=== PATIENT | female | born 1960 | race African-American/Black ===

== ENCOUNTER 2017-03-13 13:25 | Emergency (ER) | payer MEDICARE, OTHER ==
[~2017-03-13] VITALS: Ht 157.5 cm; Wt 92.2 kg
--- NOTE | 2017-03-13 14:44 | PHYS DOC ---
General Chief Complaint: FOOT INJURY PAIN Stated Complaint: FOOT PAIN Time Seen by MD: 13:33 Source: patient Exam Limitations: no limitations Problems: History of Present Illness Initial Comments Pt is 56/F to ED c/o left foot pain. Pt states one week ago she accidentally stubbed her left hallux on bedpost at home. She's had severe pain at that MCP and IP joint since then, worse with walking better with rest. She thought it would get better, hasn't been splinting or icing it and she's been trying to walk around as normal. Recently moved here, no PCP. OTC meds not helping. No numbness/tingling/weakness/ radiating sx, no foot ulcers or erythema noted. Mild bruising at medial IP joint no swelling. Onset: last week Severity: severe Pain/Injury Location: left 1st toe Method of Injury: direct blow Modifying Factors: worse with jarring, worse with movement, improves with rest Allergies: Coded Allergies: diphenhydramine (Verified Allergy, Unknown, 03/13/17) morphine (Verified Allergy, Unknown, 03/13/17) prochlorperazine (Verified Allergy, Unknown, 03/13/17) sulfamethoxazole (Verified Allergy, Unknown, 03/13/17) trimethoprim (Verified Allergy, Unknown, 03/13/17) Past Medical History Medical History: diabetes, hypertension Surgical History: noncontributory Social History Smoker: non-smoker Alcohol: occasionally Drugs: none Review of Systems Constitutional: denies chills, denies fever Respiratory: denies cough, denies shortness of breath Cardiovascular: denies chest pain, denies palpitations Gastrointestinal: denies nausea, denies vomiting Genitourinary: denies frequency, denies hematuria Musculoskeletal: see HPI Skin: see HPI Psychiatric/Neurological: see HPI Physical Exam General Appearance: no apparent distress, obese Neck: non-tender, supple Cardiovascular/Respiratory: normal peripheral pulses, no respiratory distress Ankles: bilateral ankle non-tender, bilateral ankle normal inspection, bilateral ankle normal range of motion, bilateral ankle no evidence of injury Feet: left foot other (halgus varus b/l, mild TTP 1st MCP, exquisite TTP medial IP joint +bruising no deformity, ROM not tested due to pt discomfort) Neurologic/Tendon: normal sensation, normal motor functions, normal tendon functions, responds to pain, no evidence tendon injury Psychiatric: alert, oriented x 3 Skin: warm/dry (L hallux as above) Orders, Labs, Meds RAD: no fracture Departure Time of Disposition: 15:07 Disposition: 01 HOME, SELF-CARE Diagnosis: left hallux contusion/sprain Condition: GOOD Patient Instructions: Toe Injuries and Amputations Additional Instructions: Radiologist interpreted your films, no acute fracture or dislocation. Ice and elevate as tolerated, limit walking and standing. Wear post-op shoe as needed. OTC ibuprofen for baseline discomfort. Rx: norco 5mg #15 You will need to follow up with a primary care doctor for recheck and to establish health maintenance with your chronic medical issues. If needed, ED staff can give you a list of local doctors some of whom have walk- in appointments available. Follow up with a doctor in 7-10 days. Return to ED with new or changing symptoms. GINO BARGER DO Mar 13, 2017 14:44
[2017-03-13] MEDS ORDERED: HYDROcodone/APAP 5/325MG 1 TAB TABLET PO ONE (14:45)
[2017-03-13] MEDS ORDERED: HYDR-971 PO (15:05)
--- NOTE | 2017-03-13 15:05 | RAD ---
Examination: 3 views of the left foot History: History of pain the left foot Comparison: None available Findings: The alignment of the tarsal bones grossly appears unremarkable. The alignment of the tarsometatarsal joints, metatarsophalangeal joints grossly appears unremarkable. There is no acute fracture visualized. Small inferior calcaneal enthesophyte. Impression: No acute osseous findings
[2017-03-13 15:25] VITALS: BP 179/99
== END 2017-03-13 15:27 | disposition home or self-care (01) ==
LOC: ER 13:31
DX: M79.672 Pain in left foot (principal); E11.9 Type 2 diabetes mellitus without complications; I10 Essential (primary) hypertension; Z88.5 Allergy status to narcotic agent; Z88.1 Allergy status to other antibiotic agents; Z88.8 Allergy status to other drugs, medicaments and biological substances; W22.8XXA Striking against or struck by other objects, initial encounter; Y93.89 Activity, other specified; Y99.8 Other external cause status; Y92.89 Other specified places as the place of occurrence of the external cause
CPT/HCPCS: 29515; 73630; 99284-25

== ENCOUNTER 2017-04-19 13:27 | Emergency (ER) | payer MEDICARE ==
[~2017-04-19] VITALS: Ht 157.5 cm; Wt 92.5 kg
[~2017-04-19 13:27] MED LIST: HYDR-971 PO
[2017-04-19 13:45] VITALS: BP 168/99
[2017-04-19] MEDS ORDERED: HYDR25TA PO (13:53)
[2017-04-19] MEDS ORDERED: CLOT12CR2 TP (13:53)
--- NOTE | 2017-04-19 13:59 | ED.ADGEN ---
Past History Past Medical History: Diabetes, Hypertension Past Surgical History: , Hysterectomy, Other Alcohol Use: Rarely Drug Use: None Adult General Chief Complaint Chief Complaint right breast rash HPI HPI Patient is a 56 year old female who presents with right breast rash. Disposition female comes in with a few day history of itching right breast rash underneath her right breast. No trauma. No other symptoms. It's approximately 15 x 15 cm. It's on the underside of her breast. Left breast is not involved. There is no rash extending to her back. Review of Systems Review of Systems Constitutional: Denies fever or chills HENT: Denies nasal congestion or sore throat Respiratory: Denies cough or shortness of breath Cardiovascular: No additional information not addressed in HPI GI: Denies abdominal pain, nausea, vomiting, bloody stools or diarrhea [] : Denies dysuria or hematuria Musculoskeletal: Denies back pain or joint pain rash as per HPI Neurologic: Denies headache, focal weakness or sensory changes Endocrine: Denies polyuria or polydipsia Allergies Allergies Allergies Coded Allergies Type Severity Reaction Last Updated Verified diphenhydramine Allergy Unknown 03/13/17 Yes morphine Allergy Unknown 03/13/17 Yes prochlorperazine Allergy Unknown 03/13/17 Yes sulfamethoxazole Allergy Unknown 03/13/17 Yes trimethoprim Allergy Unknown 03/13/17 Yes Physical Exam Physical Exam Constitutional: Well developed, well nourished, no acute distress, non-toxic appearance. HENT: Normocephalic, atraumatic, bilateral external ears normal, oropharynx moist, no oral exudates, nose normal. Eyes: PERRLA, EOMI, conjunctiva normal, no discharge. Neck: Normal range of motion, no tenderness, supple, no stridor. Cardiovascular:Heart rate regular rhythm, no murmur Lungs & Thorax: Bilateral breath sounds clear to auscultation Abdomen: Bowel sounds normal, soft, no tenderness, no masses, no pulsatile masses. Skin: 1515 cm area of excoriation on the right breast. No extension to the back. Consistent with tinea or yeast. Back: No tenderness, no CVA tenderness. Extremities: No tenderness, no cyanosis, no clubbing, ROM intact, no edema. Neurologic: Alert and oriented X 3, normal motor function, normal sensory function, no focal deficits noted. Psychologic: Affect normal, judgement normal, mood normal. Current Patient Data Vital Signs Vital Signs Date Time Temp Pulse Resp B/P (MAP) Pulse Ox O2 Delivery O2 Flow Rate FiO2 04/19/17 13:45 99.3 66 18 95 Room Air EKG EKG [] Radiology/Procedures Radiology/Procedures [] Impressions: Right breast yeast infection Course & Med Decision Making Course & Med Decision Making Not consistent with shingles. We'll treat with antifungal's and hydroxyzine for itching. She states Benadryl gives her headache does not have a true allergy and she is willing to try hydroxyzine. Agrees to follow-up in the next couple days with a family practice doctor Final Impression Final Impression right breast yeast infection[] Problems: Dragon Disclaimer Dragon Disclaimer This electronic medical record was generated, in whole or in part, using a voice recognition dictation system. ROWENA DE OLIVEIRA MD Apr 19, 2017 13:59
== END 2017-04-19 14:14 | disposition home or self-care (01) ==
LOC: ER 13:27
DX: N61.0 Mastitis without abscess (principal); B37.89 Other sites of candidiasis; E11.9 Type 2 diabetes mellitus without complications; I10 Essential (primary) hypertension; Z88.5 Allergy status to narcotic agent; Z88.1 Allergy status to other antibiotic agents; Z88.8 Allergy status to other drugs, medicaments and biological substances
CPT/HCPCS: 99283

== ENCOUNTER 2017-05-04 11:46 | Emergency (ER) | payer MEDICARE ==
[~2017-05-04 11:46] MED LIST changes: +CLOT12CR2 TP; +HYDR25TA PO
--- NOTE | 2017-05-04 12:13 | PHYS DOC ---
General Chief Complaint: DENTAL PROBLEM Stated Complaint: DENTAL PAIN Time Seen by MD: 12:02 Source: patient Exam Limitations: no limitations Problems: History of Present Illness Initial Comments Patient is a 57-year-old female who comes to the emergency department initially complaining of dental pain. Patient states that she's had right upper dental pain and swelling of the gums for the past several days. She's been taking ibuprofen [id number] without any relief. She denies headache fever chills sweats arm or neck symptoms nausea or vomiting. Patient says she recently moved here and doesn't have a doctor locally and hasn't established with a dentist. In talking the patient states that she's been taking ibuprofen and thinks that ibuprofen has caused her to have some chest discomfort. I asked further about this discomfort, she says that it started last night and feels as if her heart is fluttering or palpitations. She first noticed it last night she denies shortness of breath diaphoresis arm or neck symptoms. She has no prior chest pain workup, denies family history of heart disease and has never been a smoker. She does have diabetes hypertension and hyperlipidemia. She says the symptoms were minimal however she did agree to stay for workup. Since symptoms started greater than 12 hours ago one set of cardiac enzymes will be diagnostic. She is currently asymptomatic in the emergency department aside from dental pain. Timing/Duration: other (>12 hours) Severity: moderate Modifying Factors: worse with medication Associated Symptoms: other Allergies: Coded Allergies: diphenhydramine (Verified Allergy, Unknown, 03/13/17) morphine (Verified Allergy, Unknown, 03/13/17) prochlorperazine (Verified Allergy, Unknown, 03/13/17) sulfamethoxazole (Verified Allergy, Unknown, 03/13/17) trimethoprim (Verified Allergy, Unknown, 03/13/17) Past Medical History Medical History: diabetes, high cholesterol, hypertension Surgical History: noncontributory Social History Smoker: non-smoker Alcohol: none Drugs: none Review of Systems Constitutional: denies chills, denies diaphoresis, denies fever, denies malaise EENTM: see HPI, denies double vision, denies ear pain, denies ear discharge, denies nose pain, denies nose congestion, denies throat swelling Respiratory: denies cough, denies shortness of breath, denies wheezing Cardiovascular: see HPI, denies chest pain, denies edema, denies syncope Gastrointestinal: denies abdominal pain, denies diarrhea, denies nausea, denies vomiting Genitourinary: denies dysuria, denies frequency, denies hematuria Musculoskeletal: denies back pain, denies joint swelling, denies neck pain Psychiatric/Neurological: denies headache, denies numbness, denies paresthesia Hematologic/Lymphatic: denies blood clots, denies easy bleeding, denies easy bruising Physical Exam General Appearance: WD/WN, no apparent distress Eyes: bilateral eye normal inspection, bilateral eye PERRL, bilateral eye EOMI Ear, Nose, Throat: hearing grossly normal, normal ENT inspection (multiple missing teeth with very poor dentition, right first molar with severe caries and mild gingival swelling no purulence noted no bony tenderness no other soft tissue swelling the airway is patent), normal pharynx Neck: non-tender, supple Respiratory: normal breath sounds, no respiratory distress Cardiovascular: normal peripheral pulses, regular rate, rhythm Gastrointestinal: normal bowel sounds, non tender, soft Back: no CVA tenderness, no vertebral tenderness Extremities: normal range of motion, non-tender, normal inspection Neurologic/Psychiatric: revit drafter II-XII nml as tested, no motor/sensory deficits, alert, normal mood/affect, oriented x 3 Skin: normal color, warm/dry Orders, Labs, Meds EKG: Normal sinus rhythm 74 bpm no STEMI changes. Interpreted by Dr. Lowry. PATIENT: KANDACE PATTERSON ACCOUNT: [id number] : 1960 LOCATION: ER AGE: 57 SEX: F EXAM STATUS: REG ER ORD. PHYSICIAN: GINO LOWRY DO REASON: cp PROCEDURE: PORTABLE CHEST 1V AP chest radiograph 05/04/2017 Clinical indication: Chest pain Comparison: None. Findings: Cardiac and mediastinal silhouettes are within normal limits. No pleural effusion, pneumothorax or focal consolidation. Impression: No acute cardiopulmonary abnormality. DICTATED AND SIGNED BY: TERESA KOVACS MD DATE: 05/04/17 1223 CC: PCP,NO; GINO LOWRY DO ~ Labs unremarkable 1342: I discussed negative findings with the patient, she remains asymptomatic aside from dental pain. As her symptoms onset is greater than 12 hours and we have negative labs acute coronary syndrome is ruled out. No obvious emergent condition at this time, patient declines observation admission at this time and I feel it is unnecessary as well. Signs and symptoms to monitor as well as indications for urgent return to the department were discussed and the patient' s questions were answered to her satisfaction. She expressed agreement and understanding with the treatment plan. She is requesting a list of doctors and dentists so she can become established and take care of her acute needs and further health maintenance. Departure Time of Disposition: 13:44 Disposition: HOME, SELF-CARE Diagnosis: dental caries, chest burning, GERD Condition: GOOD Patient Instructions: Dental Caries, Gastroesophageal Reflux Disease, Adult, [id number] Additional Instructions: Please review the patient education materials given by ED staff. Discontinue ibuprofen until follow-up with your doctor. Listerine gargles 3 times daily after brushing and flossing. Continue current medications. Prescriptions: Amoxicillin, [place] 5 mg quantity 15, Diflucan 150 mg Take medications with food to avoid nausea and vomiting. Take 1 Diflucan on day 5 of amoxicillin and the refill upon completion of the antibiotic to prevent yeast infection symptoms. Follow-up with a dentist FERNANDO, call today to schedule next available appointment. Follow-up with a primary care doctor in the next 1-2 weeks to establish health maintenance. GINO LOWRY DO May 04, 2017 12:13
--- NOTE | 2017-05-04 12:26 | RAD ---
AP chest radiograph 05/04/2017 Clinical indication: Chest pain Comparison: None. Findings: Cardiac and mediastinal silhouettes are within normal limits. No pleural effusion, pneumothorax or focal consolidation. Impression: No acute cardiopulmonary abnormality.
[2017-05-04 12:28] LABS: BASO % 1 % (0-3); EOS # 0.3 x10^3/uL (0.0-0.7); EOS % 7 % (0-3); HEMATOCRIT 37.6 % (36.0-47.0); HEMOGLOBIN 12.8 g/dL (12.0-15.5); LYMPH # 1.9 x10^3/uL (1.0-4.8); LYMPH % 43 % (24-48); MEAN CORPUSCULAR HEMOGLOBIN 29 pg (25-35); MEAN CORPUSCULAR HGB CONC 34 g/dL (31-37); MEAN CORPUSCULAR VOLUME 86 fL (79-100); MONO # 0.2 x10^3/uL (0.0-1.1); MONO % 6 % (0-9); NEUT # 1.9 x10^3uL (1.8-7.7); NEUT % 44 % (31-73); PLATELET COUNT 479 x10^3/uL (140-400); RED BLOOD COUNT 4.36 x10^6/uL (3.50-5.40); RED CELL DISTRIBUTION WIDTH 13.9 % (11.5-14.5); WHITE BLOOD COUNT 4.3 x10^3/uL (4.0-11.0)
[2017-05-04] MEDS ORDERED: ASPIRIN 81 MG TAB.CHEW PO ONE (12:30)
[2017-05-04] MEDS ORDERED: NITROGLYCERIN SUBLINGUAL 0.4 MG BOTTLE OF 25. SL PRN (12:30)
[2017-05-04] MEDS ORDERED: HYDROcodone/APAP 10/325 1 TAB TABLET PO ONE (12:45)
[2017-05-04] MEDS ORDERED: ONDANSETRON ODT 4 MG TAB.RAPDIS PO ONE (12:45)
[2017-05-04 12:47] LABS: ALBUMIN 3.6 g/dL (3.4-5.0); ALBUMIN/GLOBULIN RATIO 0.9 (1.0-1.7); GFR 68.7; POTASSIUM 4.2 mmol/L (3.5-5.1); TOTAL BILIRUBIN 0.2 mg/dL (0.2-1.0); TOTAL PROTEIN 7.6 g/dL (6.4-8.2)
[2017-05-04 13:30] VITALS: BP 161/85
[2017-05-04] MEDS ORDERED: FLUC150T PO (13:42)
[2017-05-04] MEDS ORDERED: AMOX500C PO (13:42)
[2017-05-04] MEDS ORDERED: HYDR-971 PO (13:42)
--- NOTE | 2017-05-04 14:02 | EKG ---
[address] [address] Test Date: 2017-05-04 Test Time: 12:25:44 Pat Name: KANDACE PATTERSON Department: Room: Gender: F Serology Teacher: NICOLLE : 1960 Requested By: GINO BARGER Order Number: [id number] Reading MD: Yeyo Rothman MD Measurements Intervals [place] Rate: 74 P: 31 CA: 160 QRS: 28 QRSD: 82 T: 56 QT: 362 QTc: 407 Interpretive Statements SINUS RHYTHM Electronically Signed On 05-07-2017 14:14:33 MEDICAL HE[facility] RESEARCHER by Yeyo Rothman MD
[2017-05-04] MEDS ORDERED: AMOXICILLIN 250 MG CAPSULE PO ONE (14:10)
== END 2017-05-04 13:50 | disposition home or self-care (01) ==
LOC: ER 11:46
DX: K02.9 Dental caries, unspecified (principal); K21.9 Gastro-esophageal reflux disease without esophagitis; E11.9 Type 2 diabetes mellitus without complications; E78.00 Pure hypercholesterolemia, unspecified; I10 Essential (primary) hypertension; Z88.1 Allergy status to other antibiotic agents; Z88.5 Allergy status to narcotic agent; Z88.8 Allergy status to other drugs, medicaments and biological substances
CPT/HCPCS: 36415; 71010; 80053; 82550; 83690; 83880; 84484; 85025; 93005; 99285-25

== ENCOUNTER 2017-07-26 20:56 | Emergency (ER) | payer MEDICAID, MEDICARE ==
[~2017-07-26] VITALS: Ht 157.5 cm; Wt 92.2 kg
[~2017-07-26 20:56] MED LIST changes: +AMOX500C PO; +FLUC150T PO
--- NOTE | 2017-07-26 21:08 | ED.ADGEN ---
Past History Past Medical History: Diabetes, High Cholesterol, Hypertension Past Surgical History: , Hysterectomy, Other Alcohol Use: None Drug Use: None Adult General Chief Complaint Chief Complaint "My eyes are itchy... and I got this rash.." HPI HPI Patient is a 57 year old female who presents with above hx and complaints. Pt recent has some massage oil on Rt shoulder and New hair oil. Pt. has noticed eye are itching.. and has a rash on Rt. shoulder where she had some massage oil placed. Pt. has some periorbital edema which appears to be contact dermatitis. Pt. has similar rash on rt. shoulder. Pt. has been using some Olopatadine 0.2% but states eyes are still itchy. Patient is visual acuity was 20/25. Does have some mild conjunctiva injection. Irises are equal and responsive to light. No contralateral pain. Eczema picture on her muscles intact. Fundus exam limited but benign. No limbus injection. Review of Systems Review of Systems Constitutional: Denies fever or chills [] Eyes: Denies change in visual acuity,. Does complain of redness and itchy eyes. No eye pain [] HENT: Denies nasal congestion or sore throat [] Respiratory: Denies cough or shortness of breath [] Cardiovascular: No additional information not addressed in HPI [] GI: Denies abdominal pain, nausea, vomiting, bloody stools or diarrhea [] : Denies dysuria or hematuria [] Musculoskeletal: Denies back pain or joint pain [] Integument: Complains of rash around both eyes and right shoulder Neurologic: Denies headache, focal weakness or sensory changes [] Endocrine: Denies polyuria or polydipsia [] All other systems were reviewed and found to be within normal limits, except as documented in this note. Family History Family History Noncontributory Current Medications Current Medications Current Medications Medications (Trade) Dose Ordered Sig/Ramses Start Time Stop Time Status Last Admin Dose Admin Bacitracin/ Polymyxin B Sulfate (Polysporin Opth) 0.25 inch 1X STAT 07/26/17 21:57 07/26/17 21:59 DC Prednisone (Prednisone) 50 mg 1X ONCE 07/26/17 22:15 07/26/17 22:16 DC 07/26/17 22:10 50 MG See nursing for home meds Allergies Allergies Allergies Coded Allergies Type Severity Reaction Last Updated Verified Sulfa (Sulfonamide Antibiotics) Allergy Unknown 07/26/17 Yes diphenhydramine Allergy Unknown 03/13/17 Yes morphine Allergy Unknown 03/13/17 Yes prochlorperazine Allergy Unknown 03/13/17 Yes sulfamethoxazole Allergy Unknown 03/13/17 Yes trimethoprim Allergy Unknown 03/13/17 Yes Physical Exam Physical Exam Constitutional: Mild distress, non-toxic appearance. [] HENT: Normocephalic, atraumatic, bilateral external ears normal, oropharynx moist, no oral exudates, nose mild rhinorrhea. Periorbital contact dermatitis Eyes: PERRLA, EOMI, conjunctiva mild injection, no discharge. [] Neck: Normal range of motion, no tenderness, supple, no stridor. [] Cardiovascular:Heart rate regular rhythm, no murmur [] Lungs & Thorax: Bilateral breath sounds clear to auscultation [] Abdomen: Bowel sounds normal, soft, no tenderness, no masses, no pulsatile masses. Obese. Old surgical scar Skin: Warm, dry, no erythema, right shoulder rash. [] Back: No tenderness, no CVA tenderness. [] Extremities: No tenderness, no cyanosis, no clubbing, ROM intact, no edema. [] Neurologic: Alert and oriented X 3, normal motor function, normal sensory function, no focal deficits noted. [] Psychologic: Affect anxious, judgement normal, mood normal. [] EKG EKG [] Radiology/Procedures Radiology/Procedures [] Course & Med Decision Making Course & Med Decision Making Pertinent Labs and Imaging studies reviewed. (See chart for details). Stop all makeup, stop all hair oils. Stop All massage oils. Take prednisone 50 mg a day for 5 days. Continue the antihistamine eyedrops. [] Final Impression Final Impression 1. Allergic Conjunctivitis 2. Contact Dermatitis[] Problems: Dragon Disclaimer Dragon Disclaimer This electronic medical record was generated, in whole or in part, using a voice recognition dictation system. SHIVA SIMONS MD Jul 26, 2017 21:08
[2017-07-26] MEDS ORDERED: BACITRACIN/POLYMYXIN B OPHTH OINTMENT 3.5GM TUBE. OU STA (21:57)
[2017-07-26] MEDS ORDERED: PRED50TA PO (22:03)
[2017-07-26] MEDS ORDERED: predniSONE 10 MG TABLET PO ONE (22:15)
[2017-07-26 22:22] VITALS: BP 176/84
== END 2017-07-26 22:37 | disposition home or self-care (01) ==
LOC: ER 20:56
DX: L25.9 Unspecified contact dermatitis, unspecified cause (principal); H10.13 Acute atopic conjunctivitis, bilateral; E11.9 Type 2 diabetes mellitus without complications; E78.00 Pure hypercholesterolemia, unspecified; I10 Essential (primary) hypertension; Z88.2 Allergy status to sulfonamides; Z88.5 Allergy status to narcotic agent; Z88.8 Allergy status to other drugs, medicaments and biological substances; Z88.1 Allergy status to other antibiotic agents
CPT/HCPCS: 99283; J7512

== ENCOUNTER 2017-09-14 20:44 | Emergency (ER) | payer MEDICARE, MEDICAID ==
[~2017-09-14] VITALS: Ht 157.5 cm; Wt 92.5 kg
[~2017-09-14 20:44] MED LIST changes: +PRED50TA PO
[2017-09-14 21:41] VITALS: BP 142/88
--- NOTE | 2017-09-14 21:41 | PHYS DOC ---
Past History Past Medical History: Diabetes, High Cholesterol, Hypertension Past Surgical History: , Hysterectomy, Other Alcohol Use: None Drug Use: None Adult General Chief Complaint Chief Complaint: MULTIPLE COMPLAINTS HPI HPI 57-year-old Female with a history of hypertension high cholesterol and type 2 diabetes now presents to the emergency department complaining of body aches and subjective fever. Patient states there is a sick contact in her family who has a viral syndrome and she thinks she has the same thing. Denies nausea vomiting or diarrhea. No headache or stiff neck. She does feel generally fatigued. No chest pain or shortness of breath. Patient has no productive cough Review of Systems Review of Systems Constitutional: Denies fever or chills [] Eyes: Denies change in visual acuity, redness, or eye pain [] HENT: Denies nasal congestion or sore throat [] Respiratory: Denies cough or shortness of breath [] Cardiovascular: No additional information not addressed in HPI [] GI: Denies abdominal pain, nausea, vomiting, bloody stools or diarrhea [] : Denies dysuria or hematuria [] Musculoskeletal: Denies back pain or joint pain [] Integument: Denies rash or skin lesions [] Neurologic: Denies headache, focal weakness or sensory changes [] Endocrine: Denies polyuria or polydipsia [] All other systems were reviewed and found to be within normal limits, except as documented in this note. Allergies Allergies Allergies Coded Allergies Type Severity Reaction Last Updated Verified Sulfa (Sulfonamide Antibiotics) Allergy Unknown 07/26/17 Yes diphenhydramine Allergy Unknown 03/13/17 Yes morphine Allergy Unknown 03/13/17 Yes prochlorperazine Allergy Unknown 03/13/17 Yes sulfamethoxazole Allergy Unknown 03/13/17 Yes trimethoprim Allergy Unknown 03/13/17 Yes Physical Exam Physical Exam Patient is well-appearing with a completely normal exam. Specifically mucous membranes are moist with no tachycardia. Supple neck benign abdomen and a nonfocal exam Constitutional: Well developed, well nourished, no acute distress, non-toxic appearance. [] HENT: Normocephalic, atraumatic, bilateral external ears normal, oropharynx moist, no oral exudates, nose normal. [] Eyes: PERRLA, EOMI, conjunctiva normal, no discharge. [] Neck: Normal range of motion, no tenderness, supple, no stridor. [] Cardiovascular:Heart rate regular rhythm, no murmur [] Lungs & Thorax: Bilateral breath sounds clear to auscultation [] Abdomen: Bowel sounds normal, soft, no tenderness, no masses, no pulsatile masses. [] Skin: Warm, dry, no erythema, no rash. [] Back: No tenderness, no CVA tenderness. [] Extremities: No tenderness, no cyanosis, no clubbing, ROM intact, no edema. [] Neurologic: Alert and oriented X 3, normal motor function, normal sensory function, no focal deficits noted. [] Psychologic: Affect normal, judgement normal, mood normal. [] Current Patient Data Vital Signs Vital Signs Date Time Temp Pulse Resp B/P (MAP) Pulse Ox O2 Delivery O2 Flow Rate FiO2 09/14/17 20:45 100.5 91 20 172/87 (115) 94 Room Air EKG EKG [] Radiology/Procedures Radiology/Procedures [] Course & Med Decision Making Course & Med Decision Making Pertinent Labs and Imaging studies reviewed. (See chart for details) Signs and symptoms consistent with viral syndrome. No evidence of dehydration. Vital signs unremarkable. Patient is well-appearing and has no clinical fever. She is aware to take Tylenol rest drink plenty of fluids and follow-up with her doctor. No further workup or treatment indicated patient agrees with outpatient follow-up and strict return precautions given [] Dragon Disclaimer Dragon Disclaimer This electronic medical record was generated, in whole or in part, using a voice recognition dictation system. Departure Departure: Impression: Primary Impression: Viral syndrome Additional Impression: Myalgia Disposition: 01 HOME, SELF-CARE Condition: GOOD Referrals: NON,STAFF (PCP) Patient Instructions: Viral Syndrome Additional Instructions: It appears that you're suffering from a viral syndrome. Rest and drink plenty of fluids. Take Tylenol every 4 hours as needed for aches and pains or fever. Get plenty of rest. Follow-up with your doctor in 1-2 days and return immediately for new severe worsening symptoms Problem Qualifiers ADAM RIVERA MD Sep 14, 2017 21:41
[2017-09-14] MEDS ORDERED: KETOROLAC 30 MG/ML VIAL. IM ONE (22:00)
== END 2017-09-14 21:41 | disposition home or self-care (01) ==
LOC: ER 20:44
DX: B34.9 Viral infection, unspecified (principal); E11.9 Type 2 diabetes mellitus without complications; E78.00 Pure hypercholesterolemia, unspecified; I10 Essential (primary) hypertension; Z88.5 Allergy status to narcotic agent; Z88.1 Allergy status to other antibiotic agents; Z88.2 Allergy status to sulfonamides; Z88.8 Allergy status to other drugs, medicaments and biological substances
CPT/HCPCS: 96372; 99283; J1885

== ENCOUNTER 2017-10-21 12:31 | Emergency (ER) | payer OTHER, MEDICAID ==
[2017-10-21] MEDS ORDERED: cefTRIAXone SODIUM 1 GM VIAL IV ONE (12:59)
[2017-10-21] MEDS ORDERED: HYDR-971 PO (12:59)
[2017-10-21] MEDS ORDERED: PENI500T PO (12:59)
--- NOTE | 2017-10-21 13:00 | PHYS DOC ---
Past History Past Medical History: Diabetes, High Cholesterol, Hypertension Past Surgical History: , Hysterectomy, Other Smoking: Non-smoker Alcohol Use: None Drug Use: None Adult General Chief Complaint Chief Complaint: DENTAL PROBLEM HPI HPI 57-year-old female patient complaining of upper jaw and dental pain for 1 week that getting worse today with swelling of her face. Patient states she is not able to open her mouth because of pain and denies fever and chills, nausea vomiting, broken tooth. Patient has history of diabetes and does not smoke. Review of Systems Review of Systems Constitutional: Denies fever or chills [] Eyes: Denies change in visual acuity, redness, or eye pain [] HENT: Denies nasal congestion or sore throat, reports dental pain [] Respiratory: Denies cough or shortness of breath [] Cardiovascular: No additional information not addressed in HPI [] GI: Denies abdominal pain, nausea, vomiting, bloody stools or diarrhea [] : Denies dysuria or hematuria [] Musculoskeletal: Denies back pain or joint pain [] Integument: Denies rash or skin lesions [] Neurologic: Denies headache, focal weakness or sensory changes [] Endocrine: Denies polyuria or polydipsia [] All other systems were reviewed and found to be within normal limits, except as documented in this note. Allergies Allergies Allergies Coded Allergies Type Severity Reaction Last Updated Verified Sulfa (Sulfonamide Antibiotics) Allergy Unknown 07/26/17 Yes diphenhydramine Allergy Unknown 03/13/17 Yes morphine Allergy Unknown 03/13/17 Yes prochlorperazine Allergy Unknown 03/13/17 Yes sulfamethoxazole Allergy Unknown 03/13/17 Yes trimethoprim Allergy Unknown 03/13/17 Yes Physical Exam Physical Exam Constitutional: Well developed, well nourished, moderate distress, non-toxic appearance. [] HENT: Normocephalic, atraumatic, bilateral external ears normal, oropharynx moist, no oral exudates, poor dental hygiene with missing several teeth, right upper molar #1 tenderness and abscess and large cavity, right facial edema without erythema Eyes: PERRLA, EOMI, conjunctiva normal, no discharge. [] Neck: Normal range of motion, no tenderness, supple, no stridor. [] Cardiovascular:Heart rate regular rhythm, no murmur [] Lungs & Thorax: Bilateral breath sounds clear to auscultation [] Neurologic: Alert and oriented X 3, normal motor function, normal sensory function, no focal deficits noted. [] Psychologic: Affect normal, judgement normal, mood normal. [] EKG EKG [] Radiology/Procedures Radiology/Procedures [] Course & Med Decision Making Course & Med Decision Making Evaluation of patient in ER showed 57-year-old female patient with dental pain and facial cellulitis. Patient treated with Toradol and Rocephin in ER and instructed to follow up with her dentist. Patient had blood sugar of 111. I've spoken with the patient and/or caregivers. I've explained the patient's condition, diagnosis and treatment plan based on information available to me at this time. I've answered the patient's and/or caregivers questions and addressed any concerns. The patient and/or caregivers have a good understanding the patient's diagnosis, condition and treatment plan as can be expected at this point. Vital signs have been stabilized. The patient's condition is stable for discharge from the emergency department. The patient will pursue further outpatient evaluation with her primary care provider or other designated consulting physician as outlined in the discharge instructions. Patient and/or caregivers are agreeable to this plan of care and follow-up instructions have been explained in detail. The patient and/or caregivers have received these instructions in written format and expressed understanding of these discharge instructions. The patient and her caregivers are aware that if any significant change in condition or worsening of symptoms should prompt him to immediately return to this of the closest emergency department. If an emergent department is not readily available I would encourage him to call 911. Roxanne Disclaimer Dragon Disclaimer This electronic medical record was generated, in whole or in part, using a voice recognition dictation system. Departure Departure: Impression: Primary Impression: Facial cellulitis Additional Impression: Dental abscess Disposition: HOME, SELF-CARE (At 1310) Condition: IMPROVED Referrals: PCP,NO (PCP) Patient Instructions: Cellulitis, Dental Abscess Additional Instructions: Follow-up with the dentist in 2 or 3 days Return to ER if not getting better Scripts Hydrocodone Bit/Acetaminophen (NORCO 5-325 TABLET) 1 Each Tablet 1 TAB PO PRN Q6HRS Y for PAIN, #14 TAB 0 Refills Prov: JAG GRAHAM MD 10/21/17 Penicillin V Potassium (PENICILLIN V POTASSIUM) 500 Mg Tablet 1 TAB PO QID, #40 TAB Prov: JAG GRAHAM MD 10/21/17 Problem Qualifiers JAG GRAHAM MD October 21, 2017 13:00
[2017-10-21] MEDS: KETOROLAC 60 MG/2 ML VIAL. IM ONE (13:07)
[2017-10-21] MEDS: cefTRIAXone IM 1 GM VIAL IM ONE (13:08)
[2017-10-21 13:37] VITALS: BP 146/90
== END 2017-10-21 13:37 | disposition home or self-care (01) ==
LOC: ER 12:31
DX: L03.211 Cellulitis of face (principal); K04.7 Periapical abscess without sinus; E11.9 Type 2 diabetes mellitus without complications; E78.00 Pure hypercholesterolemia, unspecified; I10 Essential (primary) hypertension; Z88.2 Allergy status to sulfonamides; Z88.5 Allergy status to narcotic agent; Z88.1 Allergy status to other antibiotic agents; Z88.8 Allergy status to other drugs, medicaments and biological substances
CPT/HCPCS: 82947; 96372; 99284; J0696; J1885

== ENCOUNTER 2018-03-26 14:44 | Inpatient (IN) | payer MEDICAID, OTHER ==
[~2018-03-26] VITALS: Ht 157.5 cm; Wt 86.2 kg
[~2018-03-26 14:44] MED LIST changes: +PENI500T PO
[2018-03-26] MEDS ORDERED: NITROGLYCERIN SUBLINGUAL 0.4 MG BOTTLE OF 25. SL PRN (15:15)
[2018-03-26] MEDS ORDERED: ASPIRIN 81 MG TAB.CHEW PO ONE (15:15)
--- NOTE | 2018-03-26 15:29 | RAD ---
EXAM: CHEST 1 VIEW History: Chest pain COMPARISON: 05/04/2017 TECHNIQUE: Single portable radiograph of the chest FINDINGS: The cardiac silhouette is unremarkable. The lungs are clear bilaterally. The costophrenic sulci are clear and well demarcated. IMPRESSION: No radiographic evidence of an acute cardiopulmonary process. Electronically signed by: Keon Shukla MD (03/26/2018 3:26 PM) [place] [id number]
[2018-03-26 15:32] LABS: BASO % 1 % (0-3); EOS % 0 % (0-3); HEMATOCRIT 39.9 % (36.0-47.0); HEMOGLOBIN 13.7 g/dL (12.0-15.5); LYMPH # 1.8 x10^3/uL (1.0-4.8); LYMPH % 21 % (24-48); MEAN CORPUSCULAR HEMOGLOBIN 30 pg (25-35); MEAN CORPUSCULAR HGB CONC 34 g/dL (31-37); MEAN CORPUSCULAR VOLUME 86 fL (79-100); MONO # 0.4 x10^3/uL (0.0-1.1); MONO % 5 % (0-9); NEUT # 6.4 x10^3uL (1.8-7.7); NEUT % 74 % (31-73); PLATELET COUNT 698 x10^3/uL (140-400); RED BLOOD COUNT 4.64 x10^6/uL (3.50-5.40); RED CELL DISTRIBUTION WIDTH 13.8 % (11.5-14.5); WHITE BLOOD COUNT 8.7 x10^3/uL (4.0-11.0)
--- NOTE | 2018-03-26 15:36 | PHYS DOC ---
Past History Past Medical History: Diabetes, High Cholesterol, Hypertension, Other Past Surgical History: , Hysterectomy Smoking: Non-smoker Alcohol Use: None Drug Use: None Adult General Chief Complaint Chief Complaint: CHEST PAIN HPI HPI Patient is a 37 year old female who presents with complaining of chest pain. Patient complaining of 2 episodes of substernal chest discomfort for since 10 AM without radiation. Patient complaining of shortness of breath, dizziness, palpitation without nausea and focal neuro deficit that last about 20 minutes. Patient rated her pain 8/10 and denies history of chest pain. Patient states she had mild cough the last few days he does fever and chills, URI symptoms. Patient has history of hypertension, dyslipidemia, diabetes mellitus without history of coronary artery disease or family history of coronary artery disease or smoking. Review of Systems Review of Systems Constitutional: Denies fever or chills [] Eyes: Denies change in visual acuity, redness, or eye pain [] HENT: Denies nasal congestion or sore throat [] Respiratory: Reports cough and shortness of breath Cardiovascular: No additional information not addressed in HPI [] GI: Denies abdominal pain, nausea, vomiting, bloody stools or diarrhea [] : Denies dysuria or hematuria [] Musculoskeletal: Denies back pain or joint pain [] Integument: Denies rash or skin lesions [] Neurologic: Denies headache, focal weakness or sensory changes [] Endocrine: Denies polyuria or polydipsia [] All other systems were reviewed and found to be within normal limits, except as documented in this note. Current Medications Current Medications Current Medications Medications (Trade) Dose Ordered Sig/[facility] Start Time Stop Time Status Last Admin Dose Admin Aspirin (Children'S Aspirin) 324 mg 1X ONCE 03/26/18 15:15 03/26/18 15:16 DC 03/26/18 15:17 324 MG Nitroglycerin (Nitrostat) 0.4 mg PRN Q5MIN PRN 03/26/18 15:15 03/27/18 15:14 03/26/18 15:15 0.4 MG Allergies Allergies Allergies Coded Allergies Type Severity Reaction Last Updated Verified Sulfa (Sulfonamide Antibiotics) Allergy Unknown 07/26/17 Yes diphenhydramine Allergy Unknown 03/13/17 Yes morphine Allergy Unknown 03/13/17 Yes prochlorperazine Allergy Unknown 03/13/17 Yes sulfamethoxazole Allergy Unknown 03/13/17 Yes trimethoprim Allergy Unknown 03/13/17 Yes Physical Exam Physical Exam Constitutional: Well developed, well nourished, mild distress, non-toxic appearance. [] HENT: Normocephalic, atraumatic, oropharynx moist, no oral exudates, nose normal. [] Eyes: PERRLA, EOMI, conjunctiva normal, no discharge. [] Neck: Normal range of motion, no tenderness, supple, no stridor. [] Cardiovascular:Heart rate regular rhythm, no murmur [] Lungs & Thorax: Bilateral breath sounds clear to auscultation [] Abdomen: Bowel sounds normal, soft, no tenderness, no masses, no pulsatile masses. [] Skin: Warm, dry, no erythema, no rash. [] Back: No tenderness, no CVA tenderness. [] Extremities: No tenderness, no cyanosis, no clubbing, ROM intact, no edema. [] Neurologic: Alert and oriented X 3, normal motor function, normal sensory function, no focal deficits noted. [] Psychologic: Affect normal, judgement normal, mood normal. [] Current Patient Data Vital Signs Vital Signs Date Time Temp Pulse Resp B/P (MAP) Pulse Ox O2 Delivery O2 Flow Rate FiO2 03/26/18 15:15 93 188/101 Lab Results Laboratory Tests Test 03/26/18 15:10 White Blood Count 8.7 x10^3/uL (4.0-11.0) Red Blood Count 4.64 x10^6/uL (3.50-5.40) Hemoglobin 13.7 g/dL (12.0-15.5) Hematocrit 39.9 % (36.0-47.0) Mean Corpuscular Volume 86 fL (79-100) Mean Corpuscular Hemoglobin 30 pg (25-35) Mean Corpuscular Hemoglobin Concent 34 g/dL (31-37) Red Cell Distribution Width 13.8 % (11.5-14.5) Platelet Count 698 x10^3/uL (140-400) H Neutrophils (%) (Auto) 74 % (31-73) H Lymphocytes (%) (Auto) 21 % (24-48) L Monocytes (%) (Auto) 5 % (0-9) Eosinophils (%) (Auto) 0 % (0-3) Basophils (%) (Auto) 1 % (0-3) Neutrophils # (Auto) 6.4 x10^3uL (1.8-7.7) Lymphocytes # (Auto) 1.8 x10^3/uL (1.0-4.8) Monocytes # (Auto) 0.4 x10^3/uL (0.0-1.1) Eosinophils # (Auto) 0.0 x10^3/uL (0.0-0.7) Basophils # (Auto) 0.0 x10^3/uL (0.0-0.2) EKG EKG Interpreted by me. EKG at 1459 showed sinus tachycardia at rate of 104, left atrial abnormality, no acute ST and T-wave abnormalities Radiology/Procedures Radiology/Procedures [address] [address] IMAGING REPORT Signed PATIENT: KANDACE PATTERSON ACCOUNT: [id number] : 1960 LOCATION: ER AGE: 57 SEX: F EXAM STATUS: REG ER ORD. PHYSICIAN: JAG GRAHAM MD REASON: epigastric pain PROCEDURE: ABDOMEN LTD Exam: Right Upper Quadrant Ultrasound 03/26/2018 3:48 PM Indication: Chest pain. Epigastric pain. Technique: Multiple realtime grayscale sonographic images were obtained over the abdomen. Static images were submitted for interpretation. Comparisons: None Findings: The pancreas is poorly visualized. Visualized portions of the pancreas are unremarkable. Visualized IVC is unremarkable. The gallbladder is partially contracted. No significant wall thickening is identified. No stones or sludge are seen. No pericholecystic fluid is seen. Portal venous flow is in the normal direction. The common bile duct is top normal in diameter between 4 and 5 mm. The liver is mildly, diffusely echogenic suggesting hepatic steatosis. The liver is mildly enlarged measuring 18.6 cm longitudinally. Right kidney is unremarkable in appearance measuring 10.2 cm in length. IMPRESSION: 1. Mild hepatomegaly and hepatic steatosis 2. Partially contracted gallbladder. Electronically signed by: Mak Hopkins MD (03/26/2018 4:30 PM) [facility] DICTATED AND SIGNED BY: MAK HOPKINS MD DATE: 03/26/181627 CC: JAG GRAHAM MD; PCP,NO ~ [place] [address] IMAGING REPORT Signed PATIENT: KANDACE PATTERSON ACCOUNT: [id number] : 1960 LOCATION: ER AGE: 57 SEX: F EXAM STATUS: REG ER ORD. PHYSICIAN: JAG GRAHAM MD REASON: chest pain PROCEDURE: PORTABLE CHEST 1V EXAM: CHEST 1 VIEW History: Chest pain COMPARISON: 05/04/2017 TECHNIQUE: Single portable radiograph of the chest FINDINGS: The cardiac silhouette is unremarkable. The lungs are clear bilaterally. The costophrenic sulci are clear and well demarcated. IMPRESSION: No radiographic evidence of an acute cardiopulmonary process. Electronically signed by: Keon Shukla MD (03/26/2018 3:26 PM) [facility] DICTATED AND SIGNED BY: KEON SHUKLA MD DATE: 03/26/18 1519 CC: JAG GRAHAM MD; PCP,NO ~ Course & Med Decision Making Course & Med Decision Making Pertinent Labs and Imaging studies reviewed. (See chart for details) Evaluation of patient in ER showed 57-year-old female patient with multiple cardiac risk factor presented to ER with complaining of chest pain that improved with nitroglycerin 1 given in ER. Patient had unremarkable EKG except for mild tachycardia that resolved spontaneously. Labs was unremarkable. Because of several cardiac risk factor plan to admit patient for observation. Dr. Lowry accepted admission at 1643. Dragon Disclaimer Dragon Disclaimer This electronic medical record was generated, in whole or in part, using a voice recognition dictation system. Departure Departure: Impression: Primary Impression: Acute chest pain Additional Impression: Diabetes mellitus Disposition: ADMITTED INPATIENT (at 1644) Admitting Physician: Other (Dr. Lowry accepted admission at 1643) Condition: IMPROVED Referrals: PCP,NO (PCP) Problem Qualifiers JAG GRAHAM MD Mar 26, 2018 15:36
[2018-03-26 15:59] LABS: ALBUMIN 3.8 g/dL (3.4-5.0); ALBUMIN/GLOBULIN RATIO 0.8 (1.0-1.7); CALCIUM 10.2 mg/dL (8.5-10.1); CREATININE 1.1 mg/dL (0.6-1.0); GFR 61.5; POTASSIUM 3.6 mmol/L (3.5-5.1); TOTAL BILIRUBIN 0.3 mg/dL (0.2-1.0); TOTAL PROTEIN 8.4 g/dL (6.4-8.2)
--- NOTE | 2018-03-26 16:33 | RAD ---
Exam: Right Upper Quadrant Ultrasound 03/26/2018 3:48 PM Indication: Chest pain. Epigastric pain. Technique: Multiple realtime grayscale sonographic images were obtained over the abdomen. Static images were submitted for interpretation. Comparisons: None Findings: The pancreas is poorly visualized. Visualized portions of the pancreas are unremarkable. Visualized IVC is unremarkable. The gallbladder is partially contracted. No significant wall thickening is identified. No stones or sludge are seen. No pericholecystic fluid is seen. Portal venous flow is in the normal direction. The common bile duct is top normal in diameter between 4 and 5 mm. The liver is mildly, diffusely echogenic suggesting hepatic steatosis. The liver is mildly enlarged measuring 18.6 cm longitudinally. Right kidney is unremarkable in appearance measuring 10.2 cm in length. IMPRESSION: 1. Mild hepatomegaly and hepatic steatosis 2. Partially contracted gallbladder. Electronically signed by: Mak Le MD (03/26/2018 4:30 PM) [facility]
[2018-03-26] MEDS ORDERED: ONDANSETRON PF 4 MG/2 ML VIAL. IV PRN (17:30)
[2018-03-26] MEDS ORDERED: MAG HYDROX/AL HYDROX/SIMETH 30 ML ORAL.SUSP PO PRN (17:30)
[2018-03-26] MEDS ORDERED: MAG HYDROX/AL HYDROX/SIMETH 30 ML ORAL.SUSP ONE (17:44)
[2018-03-26 18:05] VITALS: BP 163/89
[2018-03-26] MEDS ORDERED: ONDANSETRON ODT 4 MG TAB.RAPDIS PO PRN (18:30)
[2018-03-26] MEDS ORDERED: GLIP10TA13 PO (18:49)
[2018-03-26] MEDS ORDERED: PANT40TA3 PO (18:49)
[2018-03-26] MEDS ORDERED: METO50TA6 PO (18:49)
[2018-03-26] MEDS ORDERED: ASPI-630 PO (18:49)
[2018-03-26] MEDS ORDERED: METF10007 PO (18:49)
--- NOTE | 2018-03-26 18:53 | EKG ---
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
[2018-03-26] MEDS ORDERED: DULO30CA2 PO (19:20)
[2018-03-26 19:23] VITALS: BP 129/78
[2018-03-26] MEDS: metFORMIN 500 MG TABLET PO SCH (20:11)
[2018-03-26] MEDS: PANTOPRAZOLE 40 MG TABLET. PO SCH (20:11)
[2018-03-26] MEDS: METOPROLOL TART IMMED RELEASE 50 MG TABLET PO SCH (20:16)
[2018-03-26 23:05] VITALS: BP 144/81
[2018-03-27 05:46] VITALS: BP 130/70
[2018-03-27 06:06] LABS: BASO % 0 % (0-3); EOS % 0 % (0-3); HEMATOCRIT 35.8 % (36.0-47.0); LYMPH # 1.8 x10^3/uL (1.0-4.8); LYMPH % 26 % (24-48); MEAN CORPUSCULAR HEMOGLOBIN 29 pg (25-35); MEAN CORPUSCULAR HGB CONC 34 g/dL (31-37); MEAN CORPUSCULAR VOLUME 87 fL (79-100); MONO # 0.4 x10^3/uL (0.0-1.1); MONO % 5 % (0-9); NEUT # 4.7 x10^3uL (1.8-7.7); NEUT % 68 % (31-73); PLATELET COUNT 602 x10^3/uL (140-400); RED BLOOD COUNT 4.12 x10^6/uL (3.50-5.40); RED CELL DISTRIBUTION WIDTH 13.4 % (11.5-14.5); WHITE BLOOD COUNT 6.9 x10^3/uL (4.0-11.0)
[2018-03-27 06:16] LABS: GFR 68.7; MAGNESIUM 1.9 mg/dL (1.8-2.4)
[2018-03-27] MEDS: PANTOPRAZOLE 40 MG TABLET. PO SCH (07:30)
[2018-03-27] MEDS: metFORMIN 500 MG TABLET PO SCH (08:00)
[2018-03-27] MEDS ORDERED: ASPIRIN 81 MG TAB.CHEW PO SCH (08:00)
[2018-03-27] MEDS ORDERED: DULoxetine HCL 30 MG CAPSULE.DR PO SCH (09:00)
--- NOTE | 2018-03-27 09:05 | PDOC2 ---
SANDI AVILES APRN 03/27/18 0905: CONSULT Date of Admission DATE: 03/27/18 TIME: 09:01 Reason for Consult: chest pain Problem List Problems Medical Problems: (1) Acute chest pain Status: Acute (2) Diabetes mellitus Status: Acute History of Present Illness Ms Boland is a 57 year old female with history of hypertension, hyperlipidemia , and diabetes, who presents with complaints of chest pain. She reports chest pain described as retrosternal pressure with associated dyspnea and lightheadedness which started yesterday during light activity. She was walking from car to store when pain started. She reports she sat and pain/dyspnea resolved with total time of about 5 minutes. She continued to have pain off and on with any attempt to exert so presented to the ED where she reports her pain was resolved with nitroglycerine. She denies any discomfort since admission. She reports some decreased function over the last year due to fatigue and, she believes, depression. She reports increased stress due to relationship issues currently. she reports occasional palpitations and a feeling of heart pounding during cp episode yesterday. She reports occasional dizziness with standing too quickly and yesterday felt unsteady during her episode of CP. She denies syncope. She denies congestive symptoms such as orthopnea, PND or significant edema. Cardiovascular: HTN, hyperipidemia GI: GERD, Other (esophageal strictures s/p prior dilitations) Psych: Depression Musculoskeletal: Osteoarthritis ENT: Other (cataracts (currently scheduled for surgery tomorrow.)) Endocrine: Diabetes Past Surgical History: , Hysterectomy Family History no history of premature coronary disease, + history of diabetes and cancer Social History non smoker, no illicit drug use, no significant ETOH Current Medications Current Medications Aspirin (Children'S Aspirin) 324 mg 1X ONCE PO Last administered on 03/26/18at 15:17; Start 03/26/18 at 15:15; Stop 03/26/18 at 15:16; Status DC Nitroglycerin (Nitrostat) 0.4 mg PRN Q5MIN PRN SL CP RATING > 1/10 Last administered on 03/26/18at 15:15; Start 03/26/18 at 15:15; Stop 03/27/18 at 15: 14 Al Hydroxide/Mg Hydroxide (Mylanta Plus Xs) 30 ml PRN Q3HRS PRN PO HEARTBURN / GAS Last administered on 03/26/18at 17:49; Start 03/26/18 at 17:30 Ondansetron HCl (Zofran) 4 mg PRN Q8HRS PRN IV NAUSEA/VOMITING Last administered on 03/26/18at 17:50; Start 03/26/18 at 17:30 Influenza Virus Vaccine (Afluria Trivalent 2782-5672 Syringe) 0.5 ml ONCE ONCE VAX IM Last administered on 03/26/18at 20:23; Start 03/26/18 at 21:00; Stop 03/26/18 at 21:01; Status DC Al Hydroxide/Mg Hydroxide (Mylanta Plus Xs) 30 ml STK-MED ONCE .ROUTE ; Start 03/26/18 at 17:44; Stop 03/26/18 at 17:45; Status DC Ondansetron HCl (Zofran Odt) 4 mg PRN Q8HRS PRN PO NAUSEA/VOMITING Last administered on 03/26/18at 18:33; Start 03/26/18 at 18:30 Aspirin (Children'S Aspirin) 81 mg DAILYWBKFT PO ; Start 03/27/18 at 08:00 Glipizide (Glucotrol Er) 10 mg DAILY08 PO ; Start 03/27/18 at 08:00 Metformin HCl (Glucophage) 1,000 mg BIDWMEALS PO Last administered on at 20:11; Start 03/26/18 at 19:45 Metoprolol Tartrate (Lopressor) 50 mg BID PO ; Start 03/26/18 at 21:00 Pantoprazole Sodium (Protonix) 40 mg DAILYAC PO Last administered on 03/26/18at 20:11; Start 03/26/18 at 19:00 Duloxetine HCl (Cymbalta) 30 mg DAILY PO ; Start 03/27/18 at 09:00 Active Scripts Active Reported Cymbalta (Duloxetine Hcl) 30 Mg Capsule.dr 30 Mg PO DAILY Glipizide 10 Mg Tablet 1 Tab PO DAILY Metformin Hcl 1,000 Mg Tablet 1 Tab PO BID Aspirin 81 Mg Tab.chew 81 Mg PO DAILY Metoprolol Tartrate 50 Mg Tablet 1 Tab PO BID Protonix (Pantoprazole Sodium) 40 Mg Tablet.dr 1 Tab PO DAILY Allergies: Coded Allergies: Sulfa (Sulfonamide Antibiotics) (Verified Allergy, Intermediate, 03/27/18) diphenhydramine (Verified Allergy, Intermediate, 03/27/18) morphine (Verified Allergy, Intermediate, 03/27/18) prochlorperazine (Verified Allergy, Intermediate, 03/27/18) sulfamethoxazole (Verified Allergy, Intermediate, 03/27/18) trimethoprim (Verified Allergy, Intermediate, 03/27/18) Review of System as per HPI or below, otherwise negative General: YES: Fatigue PSYCHOLOGICAL ROS: YES: Depression Eyes: Yes: Blurry vision, Uses glasses HEENT: YES: Hearing change Respiratory: YES: SOB with excertion Cardiovascular: yes: Chest Pain, Palpitations, Lt Headedness General: Alert, Oriented X3, Cooperative, No acute distress HEENT: Atraumatic, EOMI, Other (neck is supple with normal ROM, no JVD, HJR or carotid bruits) Lungs: Clear to auscultation, Normal air movement Heart: Regular rate, Normal S1, Normal S2, Other (+ ESM 2/6 RSB) VITALS Vital Signs Date Time Temp Pulse Resp B/P (MAP) Pulse Ox O2 Delivery O2 Flow Rate FiO2 03/27/18 05:46 98.5 72 20 130/70 (90) 97 03/26/18 17:15 Room Air Labs Laboratory Tests Test 03/26/18 15:10 03/26/18 19:55 03/26/18 22:39 03/27/18 05:47 White Blood Count 8.7 x10^3/uL (4.0-11.0) 6.9 x10^3/uL (4.0-11.0) Red Blood Count 4.64 x10^6/uL (3.50-5.40) 4.12 x10^6/uL (3.50-5.40) Hemoglobin 13.7 g/dL (12.0-15.5) 12.0 g/dL (12.0-15.5) Hematocrit 39.9 % (36.0-47.0) 35.8 % (36.0-47.0) Mean Corpuscular Volume 86 fL (79-100) 87 fL (79-100) Mean Corpuscular Hemoglobin 30 pg (25-35) 29 pg (25-35) Mean Corpuscular Hemoglobin Concent 34 g/dL (31-37) 34 g/dL (31-37) Red Cell Distribution Width 13.8 % (11.5-14.5) 13.4 % (11.5-14.5) Platelet Count 698 x10^3/uL (140-400) 602 x10^3/uL (140-400) Neutrophils (%) (Auto) 74 % (31-73) 68 % (31-73) Lymphocytes (%) (Auto) 21 % (24-48) 26 % (24-48) Monocytes (%) (Auto) 5 % (0-9) 5 % (0-9) Eosinophils (%) (Auto) 0 % (0-3) 0 % (0-3) Basophils (%) (Auto) 1 % (0-3) 0 % (0-3) Neutrophils # (Auto) 6.4 x10^3uL (1.8-7.7) 4.7 x10^3uL (1.8-7.7) Lymphocytes # (Auto) 1.8 x10^3/uL (1.0-4.8) 1.8 x10^3/uL (1.0-4.8) Monocytes # (Auto) 0.4 x10^3/uL (0.0-1.1) 0.4 x10^3/uL (0.0-1.1) Eosinophils # (Auto) 0.0 x10^3/uL (0.0-0.7) 0.0 x10^3/uL (0.0-0.7) Basophils # (Auto) 0.0 x10^3/uL (0.0-0.2) 0.0 x10^3/uL (0.0-0.2) Prothrombin Time 9.9 SEC (9.4-11.4) Prothromb Time International Ratio 1.0 (0.9-1.1) D-Dimer (Milly) 0.36 mg/L (0.00-0.50) Sodium Level 140 mmol/L (136-145) 140 mmol/L (136-145) Potassium Level 3.6 mmol/L (3.5-5.1) 4.0 mmol/L (3.5-5.1) Chloride Level 101 mmol/L (98-107) 104 mmol/L (98-107) Carbon Dioxide Level 29 mmol/L (21-32) 28 mmol/L (21-32) Anion Gap 10 (6-14) 8 (6-14) Blood Urea Nitrogen 13 mg/dL (7-20) 12 mg/dL (7-20) Creatinine 1.1 mg/dL (0.6-1.0) 1.0 mg/dL (0.6-1.0) Estimated GFR (Cockcroft-Gault) 61.5 68.7 BUN/Creatinine Ratio 12 (6-20) Glucose Level 179 mg/dL (70-99) 145 mg/dL (70-99) Calcium Level 10.2 mg/dL (8.5-10.1) 9.0 mg/dL (8.5-10.1) Magnesium Level 2.0 mg/dL (1.8-2.4) 1.9 mg/dL (1.8-2.4) Total Bilirubin 0.3 mg/dL (0.2-1.0) Aspartate Amino Transf (AST/SGOT) 11 U/L (15-37) Alanine Aminotransferase (ALT/SGPT) 19 U/L (14-59) Alkaline Phosphatase 85 U/L (46-116) Creatine Kinase 84 U/L (26-192) Troponin I Quantitative < 0.017 ng/mL (0-0.055) 0.025 ng/mL (0-0.055) 0.023 ng/mL (0-0.055) XQ-Njw-C-Type Natriuretic Peptide 42 pg/mL (0-124) Total Protein 8.4 g/dL (6.4-8.2) Albumin 3.8 g/dL (3.4-5.0) Albumin/Globulin Ratio 0.8 (1.0-1.7) Lipase 92 U/L (73-393) Test 03/27/18 08:33 Glucose (Fingerstick) 122 mg/dL (70-99) Images EKG - sinus rhythm, early R transition, non specific st/t abn CXR - IMPRESSION: No radiographic evidence of an acute cardiopulmonary process. abd sono - IMPRESSION: 1. Mild hepatomegaly and hepatic steatosis 2. Partially contracted gallbladder. Assessment/Plan 1. chest pain, exertional c/w ACS - Relieved with nitrates. Peggy mildly elevated but indeterminate. Nonspecific EKG changes. Currently pain free. Continue aspirin, beta blockers, nitrates. Considering exertional chest pain relieved with nitrates and multiple risk factors will plan for transfer to [facility] for cardiac catheterization. R/B/A discussed with patient, questions answered. 2. hypertension - resume home medications 3. hyperlipidemia - check lipids, start statin. 4. diabetes mellitus - mgmt per PCP GEORGINA CLEANING MD 03/27/18 1556: CONSULT Assessment/Plan Patient seen and examined Chest pain. Pain increases with exertion. Has been progressive the last 24 hours. Relieved with nitroglycerin. Indeterminate cardiac enzymes with nonspecific ST segment changes. Agree with treatment with aspirin, beta blockers and nitrates. Would also treat with heparin. Agree with cardiac catheterization. Risks and benefits were discussed with the patient. Hypertension. Continue medical treatment. Hyperlipidemia. Start statins and check lipid panel. Diabetes mellitus as per the primary care service. Thank you for allowing us to participate in the care of your patient. SANDI AVILES APRN Mar 27, 2018 09:05 GEORGINA CLEANING MD Mar 27, 2018 15:56
[2018-03-27] MEDS ORDERED: IV NORMAL SALINE 1,000ML 1,000 ML IV SCH (10:00)
[2018-03-27] MEDS ORDERED: HEPARIN 25,000UTS/500ML PREMIX 500 ML IV PRN ×2 (10:00→10:30)
[2018-03-27] MEDS: METOPROLOL TART IMMED RELEASE 50 MG TABLET PO SCH (10:12)
[2018-03-27] MEDS ORDERED: HEPARIN for IV BOLUS 10,000 UNIT/10 ML VIAL. IV ONE (10:30)
[2018-03-27 10:47] VITALS: BP 146/82
--- NOTE | 2018-04-02 20:07 | PDOC1 ---
History of Present Illness Reason for Visit: Chest Pain History of Present Illness Patient is 57/F with h/o HTN, HLP, and DM who presented to the ED with one day history of exertional anterior CP with dyspnea, palpitations, and lightheadedness which initially began while patient walking in a store parking lot. Symptoms resolved with resting about 20 minutes. Several recurrances of similar symptoms until severity prompted patient to come to the ED where her CP resolved with NTG SL. She was admitted for observation, serial troponins, and cardiology consultation. In the ED her EKG sinus tach [address] changes, PCXR unremarkable, and labs including cardiac enzymes unremarkable. US of the abdomen revealed mild hepatomegaly/steatosis and partially contracted gall bladder. Her troponin peaked overnight at 0.025 and was trending down by morning 0.023. Cardiology saw the patient morning after admission and transferred her to [facility] for cardiac catheterization. Unfortunately I was unable to see the patient before she was transferred as I had morning clinic. Chief Complaint: CHEST PAIN Allergies: Coded Allergies: Sulfa (Sulfonamide Antibiotics) (Verified Allergy, Intermediate, 03/27/18) diphenhydramine (Verified Allergy, Intermediate, 03/27/18) morphine (Verified Allergy, Intermediate, 03/27/18) prochlorperazine (Verified Allergy, Intermediate, 03/27/18) sulfamethoxazole (Verified Allergy, Intermediate, 03/27/18) trimethoprim (Verified Allergy, Intermediate, 03/27/18) Past Medical History Cardiac: HTN, hyperipidemia GI: GERD, Other (esophageal strictures s/p prior dilitations) Psych: Depression Musculoskeletal: Osteoarthritis ENT: Other (cataracts (currently scheduled for surgery tomorrow.)) Endocrine: Diabetes Past Social History Smoke: No Alcohol: none Drugs: None Review of Systems Review Of Systems I was unable to see the patient no ROS Medications Current Medications Aspirin (Children'S Aspirin) 324 mg 1X ONCE PO Last administered on 03/26/18at 15:17; Start 03/26/18 at 15:15; Stop 03/26/18 at 15:16; Status DC Nitroglycerin (Nitrostat) 0.4 mg PRN Q5MIN PRN SL CP RATING > 1/10 Last administered on 03/26/18at 15:15; Start 03/26/18 at 15:15; Stop 03/27/18 at 11: 45; Status DC Al Hydroxide/Mg Hydroxide (Mylanta Plus Xs) 30 ml PRN Q3HRS PRN PO HEARTBURN / GAS Last administered on 03/26/18at 17:49; Start 03/26/18 at 17:30; Stop at 11:45; Status DC Ondansetron HCl (Zofran) 4 mg PRN Q8HRS PRN IV NAUSEA/VOMITING Last administered on 03/26/18at 17:50; Start 03/26/18 at 17:30; Stop 03/27/18 at 11: 45; Status DC Influenza Virus Vaccine (Afluria Trivalent [id number] Syringe) 0.5 ml ONCE ONCE VAX IM Last administered on 03/26/18at 20:23; Start 03/26/18 at 21:00; Stop 03/26/18 at 21:01; Status DC Al Hydroxide/Mg Hydroxide (Mylanta Plus Xs) 30 ml STK-MED ONCE .ROUTE ; Start 03/26/18 at 17:44; Stop 03/26/18 at 17:45; Status DC Ondansetron HCl (Zofran Odt) 4 mg PRN Q8HRS PRN PO NAUSEA/VOMITING Last administered on 03/26/18at 18:33; Start 03/26/18 at 18:30; Stop 03/27/18 at 11: 45; Status DC Aspirin (Children'S Aspirin) 81 mg DAILYWBKFT PO Last administered on at 10:12; Start 03/27/18 at 08:00; Stop 03/27/18 at 11:45; Status DC Glipizide (Glucotrol Er) 10 mg DAILY08 PO ; Start 03/27/18 at 08:00; Stop 04/04 at 11:45; Status DC Metformin HCl (Glucophage) 1,000 mg BIDWMEALS PO Last administered on at 20:11; Start 03/26/18 at 19:45; Stop 03/27/18 at 11:45; Status DC Metoprolol Tartrate (Lopressor) 50 mg BID PO Last administered on 03/27/18at 10 :12; Start 03/26/18 at 21:00; Stop 03/27/18 at 11:45; Status DC Pantoprazole Sodium (Protonix) 40 mg DAILYAC PO Last administered on 03/26/18at 20:11; Start 03/26/18 at 19:00; Stop 03/27/18 at 11:45; Status DC Duloxetine HCl (Cymbalta) 30 mg DAILY PO ; Start 03/27/18 at 09:00; Stop 03/27 at 11:45; Status DC Heparin Sodium/ Dextrose 500 ml @ 0 mls/hr CONT PRN IV SEE I/O RECORD; Start 03/27/18 at 10:00; Stop 03/27/18 at 10:18; Status DC Sodium Chloride 1,000 ml @ 75 mls/hr [id number] IV Last administered on at 10:30; Start 03/27/18 at 10:00; Stop 03/27/18 at 11:45; Status DC Heparin Sodium/ Dextrose 500 ml @ 0 mls/hr CONT PRN IV SEE I/O RECORD Last administered on 03/27/18at 10:26; Start 03/27/18 at 10:30; Stop 03/27/18 at 11 :45; Status DC Heparin Sodium (Porcine) (Heparin Sodium) 6,500 unit 1X ONCE IV Last administered on 03/27/18at 10:31; Start 03/27/18 at 10:30; Stop 03/27/18 at 10 :31; Status DC Active Scripts Active Reported Cymbalta (Duloxetine Hcl) 30 Mg Capsule.dr 30 Mg PO DAILY Glipizide 10 Mg Tablet 1 Tab PO DAILY Metformin Hcl 1,000 Mg Tablet 1 Tab PO BID Aspirin 81 Mg Tab.chew 81 Mg PO DAILY Metoprolol Tartrate 50 Mg Tablet 1 Tab PO BID Protonix (Pantoprazole Sodium) 40 Mg Tablet.dr 1 Tab PO DAILY Exam Vital Signs Vital Signs Date Time Temp Pulse Resp B/P (MAP) Pulse Ox O2 Delivery O2 Flow Rate FiO2 03/27/18 10:47 99.0 64 20 146/82 (103) 95 03/26/18 17:15 Room Air I was unable to examine the patient as she was transferred while I had am clinic. Assessment/Plan Assessment/Plan Exertional CP which resolved with nitrates suspicious for acute coronary syndrome HTN HLP DM2 Cardiology, upon evaluating Ms Boland transferred her to [facility] for cardiac catheterization. COURSE Allergies Coded Allergies Type Severity Reaction Last Updated Verified Sulfa (Sulfonamide Antibiotics) Allergy Intermediate 03/27/18 Yes diphenhydramine Allergy Intermediate 03/27/18 Yes morphine Allergy Intermediate 03/27/18 Yes prochlorperazine Allergy Intermediate 03/27/18 Yes sulfamethoxazole Allergy Intermediate 03/27/18 Yes trimethoprim Allergy Intermediate 03/27/18 Yes Vital Signs Date Time Temp Pulse Resp B/P (MAP) Pulse Ox O2 Delivery O2 Flow Rate FiO2 03/27/18 10:47 99.0 64 20 146/82 (103) 95 03/26/18 17:15 Room Air NOMAN BARGER DO Apr 02, 2018 20:07
== END 2018-03-27 11:14 | disposition short-term general hospital (02) | DRG 311 ==
LOC: ER 14:44 → 1 SOUTH 16:47
PROVIDERS: ADMIT Neuromusculoskeletal Medicine & OMM; ATTEND Neuromusculoskeletal Medicine & OMM
DX: I24.9 Acute ischemic heart disease, unspecified (principal); E78.00 Pure hypercholesterolemia, unspecified; E78.5 Hyperlipidemia, unspecified; F32.9 Major depressive disorder, single episode, unspecified; I10 Essential (primary) hypertension; K21.9 Gastro-esophageal reflux disease without esophagitis; E11.9 Type 2 diabetes mellitus without complications; K76.0 Fatty (change of) liver, not elsewhere classified; M19.90 Unspecified osteoarthritis, unspecified site; Z90.710 Acquired absence of both cervix and uterus; Z79.899 Other long term (current) drug therapy; Z88.5 Allergy status to narcotic agent; Z88.2 Allergy status to sulfonamides; Z88.8 Allergy status to other drugs, medicaments and biological substances; Z23 Encounter for immunization
CPT/HCPCS: 36415; 71045; 76705; 80048; 80053; 80061; 82550; 82947; 83690; 83735; 83880; 84484; 85025; 85379; 85610; 90471; 90756; 93005; J1644; J2405; Q0162; 99285-25; J7030; Q2035

== ENCOUNTER 2018-05-03 21:57 | Inpatient (IN) | payer OTHER ==
[~2018-05-03] VITALS: Ht 157.5 cm; Wt 88.6 kg
[~2018-05-03 21:57] MED LIST changes: +ASPI-630 PO; +DULO30CA2 PO; +GLIP10TA13 PO; +HYDR-3165 PO; -HYDR-971 PO; +METF10007 PO; +METO50TA6 PO; +PANT40TA3 PO
--- NOTE | 2018-05-03 22:17 | ED.ADGEN ---
Past History Past Medical History: Arthritis, CAD, Diabetes, Heart Disease, Hypertension, Other Past Surgical History: , Hysterectomy Smoking: Non-smoker Alcohol Use: None Drug Use: None Adult General Chief Complaint Chief Complaint ""... I was up moving around.. and got this chest pain.. here in center of my chest.. It got better with nitro the paramedics gave me.. I have had CP before.. the did a cath at [facility]... had me on blood thinner before.. I have also the the cardiology at ... Dr. Montalvo.. HPI HPI Patient is a 58 year old female who presents with above hx of onset of chest pain on Lt. patient denies any trauma. Patient denies any cough or productive sputum. Pain is on the left and somewhat pleuritic with a deep cough. . Patient reports previous episode of chest pain requiring transfer to [facility] where he received a cardiac catheter. Patient however did not receive any stents. Patient does have a history of diabetes, hypertension, elevated lipids. No recent travel or specific ill contacts. Patient does report she had improvement of her chest discomfort with nitroglycerin by paramedics. Review of Systems Review of Systems Constitutional: Denies fever or chills [] Eyes: Denies change in visual acuity, redness, or eye pain [] HENT: Denies nasal congestion or sore throat [] Respiratory: Complains of left chest wall pain Cardiovascular: No additional information not addressed in HPI [] GI: Denies abdominal pain, nausea, vomiting, bloody stools or diarrhea [] : Denies dysuria or hematuria [] Musculoskeletal: Denies back pain or joint pain [] Integument: Denies rash or skin lesions [] Neurologic: Denies headache, focal weakness or sensory changes [] Endocrine: Denies polyuria or polydipsia [] All other systems were reviewed and found to be within normal limits, except as documented in this note. Family History Family History Coronary artery disease, diabetes, hypertension, elevated cholesterol, Current Medications Current Medications Current Medications Medications (Trade) Dose Ordered Sig/Ramses Start Time Stop Time Status Last Admin Dose Admin Enoxaparin Sodium (Lovenox 100mg Syringe) 100 mg 1X ONCE 05/03/18 22:45 05/03/18 22:46 DC 05/03/18 22:46 100 MG Famotidine (Pepcid Vial) 20 mg 1X ONCE 05/03/18 22:45 05/03/18 22:46 DC 05/03/18 22:46 20 MG Fentanyl Citrate (Fentanyl 2ml Vial) 50 mcg PRN Q2HR PRN 05/04/18 01:00 05/05/18 00:59 Info (Do NOT chart on this entry -- for MONITORING) 1 each PRN DAILY PRN 05/04/18 00:30 05/06/18 00:29 Iohexol (Omnipaque 300 Mg/ml) 75 ml 1X ONCE 05/04/18 00:15 05/04/18 00:18 DC 05/04/18 00:52 75 ML Nitroglycerin (Nitro-Bid Oint) 0.5 inch 1X ONCE 05/03/18 22:45 05/03/18 22:46 DC Ondansetron HCl (Zofran) 4 mg PRN Q4HRS PRN 05/04/18 01:00 05/05/18 00:59 Sodium Chloride 1,000 ml @ 100 mls/hr Q10H 05/03/18 22:30 05/04/18 08:29 05/03/18 22:45 100 MLS/HR He nursing for home meds Allergies Allergies Allergies Coded Allergies Type Severity Reaction Last Updated Verified Sulfa (Sulfonamide Antibiotics) Allergy Intermediate 03/27/18 Yes diphenhydramine Allergy Intermediate 03/27/18 Yes morphine Allergy Intermediate 03/27/18 Yes prochlorperazine Allergy Intermediate 03/27/18 Yes sulfamethoxazole Allergy Intermediate 03/27/18 Yes trimethoprim Allergy Intermediate 03/27/18 Yes Physical Exam Physical Exam Constitutional: Moderately acute distress, non-toxic appearance. [] HENT: Normocephalic, atraumatic, bilateral external ears normal, oropharynx moist, no oral exudates, nose normal. [] Eyes: PERRLA, EOMI, conjunctiva normal, no discharge. [] Neck: Normal range of motion, no tenderness, supple, no stridor. Prominent thyroid Cardiovascular: Bradycardia Heart rate regular rhythm, no murmur [, PMI to the left Lungs & Thorax: Bilateral breath sounds equal at apex with scattered wheezes on auscultation []. Some basilar crackles Abdomen: Bowel sounds normal, soft, no tenderness, no masses, no pulsatile masses. Obese. Old surgery scar Skin: Warm, dry, no erythema, no rash. [] Back: No tenderness, no CVA tenderness. [] Extremities: No tenderness, no cyanosis, no clubbing, ROM intact, trace ankle edema. No cording appreciated Neurologic: Alert and oriented X 3, normal motor function, normal sensory function, no focal deficits noted. [] Psychologic: Affect anxious, judgement normal, mood normal. [] Current Patient Data Vital Signs Vital Signs Date Time Temp Pulse Resp B/P (MAP) Pulse Ox O2 Delivery O2 Flow Rate FiO2 05/03/18 22:57 16 98 Room Air 05/03/18 22:07 65 Lab Results Laboratory Tests Test 05/03/18 22:15 05/03/18 22:20 White Blood Count 6.5 x10^3/uL (4.0-11.0) Red Blood Count 4.25 x10^6/uL (3.50-5.40) Hemoglobin 12.5 g/dL (12.0-15.5) Hematocrit 37.8 % (36.0-47.0) Mean Corpuscular Volume 89 fL (79-100) Mean Corpuscular Hemoglobin 30 pg (25-35) Mean Corpuscular Hemoglobin Concent 33 g/dL (31-37) Red Cell Distribution Width 14.7 % (11.5-14.5) H Platelet Count 583 x10^3/uL (140-400) H Neutrophils (%) (Auto) 43 % (31-73) Lymphocytes (%) (Auto) 45 % (24-48) Monocytes (%) (Auto) 8 % (0-9) Eosinophils (%) (Auto) 1 % (0-3) Basophils (%) (Auto) 2 % (0-3) Neutrophils # (Auto) 2.8 x10^3uL (1.8-7.7) Lymphocytes # (Auto) 2.9 x10^3/uL (1.0-4.8) Monocytes # (Auto) 0.5 x10^3/uL (0.0-1.1) Eosinophils # (Auto) 0.1 x10^3/uL (0.0-0.7) Basophils # (Auto) 0.2 x10^3/uL (0.0-0.2) Prothrombin Time 9.6 SEC (9.4-11.4) Prothrombin Time INR 1.0 (0.9-1.1) PTT 24 SEC (23-33) D-Dimer (Milly) 0.82 mg/L (0.00-0.50) H Sodium Level 140 mmol/L (136-145) Potassium Level 3.8 mmol/L (3.5-5.1) Chloride Level 104 mmol/L (98-107) Carbon Dioxide Level 27 mmol/L (21-32) Anion Gap 9 (6-14) Blood Urea Nitrogen 11 mg/dL (7-20) Creatinine 1.0 mg/dL (0.6-1.0) Estimated GFR (Cockcroft-Gault) 68.4 Glucose Level 102 mg/dL (70-99) H Calcium Level 8.8 mg/dL (8.5-10.1) Magnesium Level 2.2 mg/dL (1.8-2.4) Total Bilirubin 0.2 mg/dL (0.2-1.0) Direct Bilirubin < 0.1 mg/dL (0.0-0.2) Aspartate Amino Transferase (AST) 12 U/L (15-37) L Alanine Aminotransferase (ALT) 13 U/L (14-59) L Alkaline Phosphatase 70 U/L (46-116) Creatine Kinase 95 U/L (26-192) Troponin I Quantitative < 0.017 ng/mL (0-0.055) TQ-Ufu-S-Type Natriuretic Peptide 124 pg/mL (0-124) Total Protein 7.4 g/dL (6.4-8.2) Albumin 3.2 g/dL (3.4-5.0) L Lipase 113 U/L (73-393) Urine Collection Type Unknown Urine Color Yellow Urine Clarity Clear Urine pH 7.0 Urine Specific [place] 1.010 Urine Protein Neg (NEG-TRACE) Urine Glucose (UA) Neg mg/dL (NEG) Urine Ketones (Stick) Neg mg/dL (NEG) Urine Blood Trace (NEG) Urine Nitrite Neg (NEG) Urine Bilirubin Neg (NEG) Urine Urobilinogen Dipstick 1 mg/dL (0.2 mg/dL) Urine Leukocyte Esterase Trace (NEG) Urine RBC 1-2 /HPF (0-2) Urine WBC Occ /HPF (0-4) Urine Squamous Epithelial Cells Few /LPF Urine Bacteria 0 /HPF (0-FEW) Urine Opiates Screen Neg (NEG) Urine Methadone Screen Neg (NEG) Urine Barbiturates Neg (NEG) Urine Phencyclidine Screen Neg (NEG) Urine Amphetamine/Methamphetamine Neg (NEG) Urine Benzodiazepines Screen Neg (NEG) Urine Cocaine Screen Neg (NEG) Urine Cannabinoids Screen Neg (NEG) Urine Ethyl Alcohol Neg (NEG) EKG EKG My interpretation EKG shows a sinus rhythm at 62 bpm. No findings acute STEMI with contralateral changes. Radiology/Procedures Radiology/Procedures I interpretation chest x-ray shows borderline cardiac silhouette. No free air in the diaphragm. Does have a left upper lobe opacity. No free air under the diaphragm.[] My interpretation CT chest shows no obvious large central pulmonary embolism. Does have hiatal hernia. Does have some small pericardial effusion. Does have a left upper lobe infiltrate or opacity. Did not notice any lesions in CT cuts through the liver . No significant hilar adenopathy . See formal reports when available Course & Med Decision Making Course & Med Decision Making Pertinent Labs and Imaging studies reviewed. (See chart for details). Patient to be admitted to Dr. Cunningham for serial Trop. and obtain US of legs. Consult to Dr. Rothman in AM. Consider follow-up with pulmonary for masslike left upper lung lesion. If available obtain prior CT's for comparison. [] Final Impression Final Impression 1. Chest Pain[] 2. Elevated d-dimer 3. Hypertension 4. History of elevated lipids 5. Masslike opacity left upper lung 6. Small pericardial effusion 7. History of hiatal hernia Dragon Disclaimer Dragon Disclaimer This electronic medical record was generated, in whole or in part, using a voice recognition dictation system. SHIVA SIMONS MD May 03, 2018 22:17
[2018-05-03] MEDS ORDERED: IV NORMAL SALINE 1,000ML 1,000 ML IV SCH (22:30)
[2018-05-03 22:32] LABS: BASO # 0.2 x10^3/uL (0.0-0.2); BASO % 2 % (0-3); EOS # 0.1 x10^3/uL (0.0-0.7); EOS % 1 % (0-3); HEMATOCRIT 37.8 % (36.0-47.0); HEMOGLOBIN 12.5 g/dL (12.0-15.5); LYMPH # 2.9 x10^3/uL (1.0-4.8); LYMPH % 45 % (24-48); MEAN CORPUSCULAR HEMOGLOBIN 30 pg (25-35); MEAN CORPUSCULAR HGB CONC 33 g/dL (31-37); MEAN CORPUSCULAR VOLUME 89 fL (79-100); MONO # 0.5 x10^3/uL (0.0-1.1); MONO % 8 % (0-9); NEUT # 2.8 x10^3uL (1.8-7.7); NEUT % 43 % (31-73); PLATELET COUNT 583 x10^3/uL (140-400); RED BLOOD COUNT 4.25 x10^6/uL (3.50-5.40); RED CELL DISTRIBUTION WIDTH 14.7 % (11.5-14.5); WHITE BLOOD COUNT 6.5 x10^3/uL (4.0-11.0)
[2018-05-03] MEDS ORDERED: ENOXAPARIN ** NOTE DOSE ** SYRINGE SQ ONE (22:45)
[2018-05-03] MEDS ORDERED: FAMOTIDINE 20 MG/2 ML VIAL IVP ONE (22:45)
[2018-05-03] MEDS ORDERED: NITROGLYCERIN OINT 1 GM PACKET. TP ONE (22:45)
[2018-05-03] MEDS ORDERED: ONDANSETRON PF 4 MG/2 ML VIAL. IV ONE (22:45)
[2018-05-03 22:46] LABS: BACTERIA,URINE 0 /HPF (0-FEW); BILIRUBIN,URINE NEG (NEG); CLARITY,URINE CLEAR; COLOR,URINE YELLOW; GLUCOSE,URINE NEG (NEG); NITRITE,URINE NEG (NEG); SQUAMOUS EPITHELIAL CELL,UR FEW /LPF; UROBILINOGEN,URINE 1 mg/dL (0.2 mg/dL); WBC,URINE OCC /HPF (0-4)
[2018-05-03 22:47] LABS: BARBITURATES NEG (NEG); BENZODIAZEPINES NEG (NEG); CANNABINOIDS NEG (NEG); COCAINE NEG (NEG); METHADONE NEG (NEG); OPIATES NEG (NEG); PHENCYCLIDINE NEG (NEG)
[2018-05-03 22:48] LABS: AMPHETAMINE/METHAMPHETAMINE NEG (NEG)
[2018-05-03 22:52] LABS: ALBUMIN 3.2 g/dL (3.4-5.0); ALK PHOS 70 U/L (46-116); ALT (SGPT) 13 U/L (14-59); ANION GAP 9 (6-14); AST (SGOT) 12 U/L (15-37); BLOOD UREA NITROGEN 11 mg/dL (7-20); CALCIUM 8.8 mg/dL (8.5-10.1); CARBON DIOXIDE 27 mmol/L (21-32); CHLORIDE 104 mmol/L (98-107); GFR 68.4; GLUCOSE 102 mg/dL (70-99); LIPASE 113 U/L (73-393); MAGNESIUM 2.2 mg/dL (1.8-2.4); POTASSIUM 3.8 mmol/L (3.5-5.1); SODIUM 140 mmol/L (136-145); TOTAL BILIRUBIN 0.2 mg/dL (0.2-1.0); TOTAL PROTEIN 7.4 g/dL (6.4-8.2)
[2018-05-03 22:54] LABS: DIRECT BILIRUBIN < 0.1 mg/dL (0.0-0.2)
--- NOTE | 2018-05-03 23:33 | EKG ---
[address] [address] Test Date: 2018-05-03 Test Time: 22:04:12 Pat Name: KANDACE PATTERSON Department: Room: Gender: F [employer]: : [id number] Requested By: SHIVA SIMONS Order Number: [id number] Reading MD: Yeyo Rothman MD Measurements Intervals [place] Rate: 62 P: 24 FL: 156 QRS: 21 QRSD: 78 T: 43 QT: 404 QTc: 412 Interpretive Statements SINUS RHYTHM Electronically Signed On 05-06-2018 14:19:20 NANOTECHNOLOGY TECHNICIAN by Yeyo Rothman MD
[2018-05-04] MEDS ORDERED: IOHEXOL 300 MG/ML 75 ML VIAL. IV ONE (00:15)
[2018-05-04] MEDS ORDERED: CONTRAST GIVEN MC PRN (00:30)
[2018-05-04] MEDS ORDERED: ONDANSETRON PF 4 MG/2 ML VIAL. IV PRN (01:00)
--- NOTE | 2018-05-04 02:06 | RAD ---
INDICATION: chest pain, shortness of breath, elevated DDimer COMPARISON: None. TECHNIQUE: Axial CT images obtained through the chest. Intravenous contrast utilized. Angiogram 3D images processed per protocol. One or more of the following individualized dose reduction techniques were utilized for this examination: 1. Automated exposure control; 2. Adjustment of the mA and/or kV according to patient size; 3. Use of iterative reconstruction technique. FINDINGS: Dense opacity left upper lung anteriorly measuring approximately 20 x 12 mm. Mild groundglass opacities. No evidence of pneumothorax. Moderate hiatal hernia. Small pericardial effusion. Small fluid in pericardial recess. Portion of ascending thoracic aorta is obscured by motion. Degenerative changes of the spine with osteophyte formation. No central pulmonary embolus but limited peripherally secondary to motion. IMPRESSION: No central pulmonary embolus. Masslike opacity left upper lung. Could be secondary to infectious or inflammatory causes but a short interval follow-up will be needed to ensure that this resolves to ensure that this is not secondary to a neoplasm. There is some subtle groundglass opacities. Could be from small airway inflammation or edema. Electronically signed by: Paco Campuzano MD (05/04/2018 2:02 AM) [facility]
[2018-05-04 04:00] VITALS: BP 149/89
[2018-05-04] MEDS: NITROGLYCERIN OINT 1 GM PACKET. TP SCH ×2 (05:49→12:26)
[2018-05-04 05:51] VITALS: BP 152/88
[2018-05-04] MEDS ORDERED: APIX5TAB3 PO (06:10)
[2018-05-04] MEDS ORDERED: AMLO2.5T3 PO (06:10)
[2018-05-04] MEDS ORDERED: LISI10TA2 PO (06:10)
[2018-05-04] MEDS ORDERED: METO25TA4 PO (06:10)
[2018-05-04] MEDS ORDERED: ATOR20TA58 PO (06:10)
--- NOTE | 2018-05-04 08:14 | RAD ---
EXAM: CHEST PA and LATERAL DATE: 05/03/2018 10:28 PM INDICATION: Chest Pain COMPARISON: 03/26/2018, 05/04/2017 FINDINGS: The heart is not enlarged. Mediastinal and hilar contours are normal. No focal parenchymal airspace opacity. No pleural effusion or pneumothorax. IMPRESSION: 1. No radiographic evidence for acute cardiopulmonary process. Electronically signed by: Kofi Huynh MD (05/04/2018 8:11 AM) [facility]
[2018-05-04] MEDS ORDERED: ASPIRIN 81 MG TAB.CHEW PO SCH (09:00)
[2018-05-04] MEDS ORDERED: ENOXAPARIN ** NOTE DOSE ** SYRINGE SQ SCH (09:00)
[2018-05-04 10:48] LABS: THYROID STIM HORMONE (TSH) 6.644 uIU/mL (0.358-3.740)
[2018-05-04 12:28] VITALS: BP 157/94
--- NOTE | 2018-05-04 12:53 | RAD ---
CLINICAL HISTORY: Chest pain, elevated d-dimer COMPARISON: None available. TECHNIQUE: Ultrasound evaluation of the bilateral lower extremities was performed from the groin to the upper calf with kaur scale, spectral and color doppler evaluation. FINDINGS: The common femoral vein, and femoral vein, including the saphenous-femoral junction are normal in appearance. Color and spectral Doppler evaluation demonstrates normal spontaneous flow, augmentation and phasicity. The popliteal vein and visualized calf veins also demonstrate normal compressibility and flow. IMPRESSION: No evidence of bilateral lower extremity DVT. Electronically signed by: Kofi Huynh MD (05/04/2018 12:50 PM) [facility]
[2018-05-04] MEDS ORDERED: LISINOPRIL 10 MG TABLET PO SCH (13:30)
--- NOTE | 2018-05-04 13:36 | PDOC2 ---
CONSULT Date of Admission DATE: 05/04/18 TIME: 13:31 Reason for Consult: Chest pain Referring Physician: Dr. Cunningham Chief Complaint Chest pain Source: Patient Problem List Problems Medical Problems: (1) Chest pain Status: Acute History of Present Illness The patient is a 58-year-old female who developed episodes of chest pain and was brought to the emergency room last evening. Patient's initial EKG showed no acute ischemic changes. Troponin level has been normal. Her d-dimer was mildly elevated at 0.82 which resulted in a CT scan scan of the chest that showed no central PE but did show a masslike opacity left upper lobe. Patient has been recently admitted for similar complaints and underwent a cardiac catheterization at [facility] on [id number]. Results showed mild coronary disease with no lesions greater than 15% and normal LV function. Patient did have some mildly slow flow in the LAD and right coronary artery and has been on medical treatment. This morning she is feeling better. Her chest pain has largely resolved. Troponins are normal 2. Cardiovascular: CAD, HTN, hyperipidemia Pulmonary: Bronchitis Endocrine: Diabetes Past Surgical History: , Hysterectomy Family History: Hypertension Smoke: No ALCOHOL: none Current Medications Current Medications Fentanyl Citrate (Fentanyl 2ml Vial) 25 mcg PRN Q15MIN PRN IV PAIN GREATER THAN 3/10 Last administered on 05/04/18at 01:54; Start 05/03/18 at 22:45; Stop 05/04/18 at 22:44 Sodium Chloride 1,000 ml @ 100 mls/hr Q10H IV Last administered on 05/03/18at 22:45; Start 05/03/18 at 22:30; Stop 05/04/18 at 08:29; Status DC Nitroglycerin (Nitro-Bid Oint) 0.5 inch 1X ONCE TP ; Start 05/03/18 at 22:45; Stop 05/03/18 at 22:46; Status DC Enoxaparin Sodium (Lovenox 100mg Syringe) 100 mg 1X ONCE SQ Last administered on 05/03/18at 22:46; Start 05/03/18 at 22:45; Stop 05/03/18 at 22:46; Status DC Famotidine (Pepcid Vial) 20 mg 1X ONCE IVP Last administered on 05/03/18at 22: 46; Start 05/03/18 at 22:45; Stop 05/03/18 at 22:46; Status DC Ondansetron HCl (Zofran) 8 mg 1X ONCE IV Last administered on 05/03/18at 22:45 ; Start 05/03/18 at 22:45; Stop 05/03/18 at 22:46; Status DC Iohexol (Omnipaque 300 Mg/ml) 75 ml 1X ONCE IV Last administered on at 00:52; Start 05/04/18 at 00:15; Stop 05/04/18 at 00:18; Status DC Info (Do NOT chart on this entry -- for MONITORING) 1 each PRN DAILY PRN MC SEE COMMENTS; Start 05/04/18 at 00:30; Stop 05/06/18 at 00:29 Ondansetron HCl (Zofran) 4 mg PRN Q4HRS PRN IV NAUSEA/VOMITING; Start at 01:00; Stop 05/05/18 at 00:59 Fentanyl Citrate (Fentanyl 2ml Vial) 50 mcg PRN Q2HR PRN IV PAIN Last administered on 05/04/18at 08:54; Start 05/04/18 at 01:00; Stop 05/05/18 at 00 :59 Aspirin (Children'S Aspirin) 81 mg DAILY PO Last administered on 05/04/18at 08: 46; Start 05/04/18 at 09:00 Enoxaparin Sodium (Lovenox 100mg Syringe) 90 mg BID SQ Last administered on at 08:46; Start 05/04/18 at 09:00 Nitroglycerin (Nitro-Bid Oint) 0.5 inch Q8HRS TP ; Start 05/04/18 at 06:00 Atorvastatin Calcium (Lipitor) 20 mg QHS PO ; Start 05/04/18 at 21:00 Lisinopril (Prinivil) 10 mg DAILY PO ; Start 05/04/18 at 13:30 Amlodipine Besylate (Norvasc) 2.5 mg DAILY PO ; Start 05/05/18 at 09:00 Aspirin (Children'S Aspirin) 81 mg DAILYWBKFT PO ; Start 05/05/18 at 08:00; Status Cancel Glipizide (Glucotrol) 10 mg DAILYWBKFT PO ; Start 05/05/18 at 08:00 Metformin HCl (Glucophage) 1,000 mg BIDWMEALS PO ; Start 05/06/18 at 08:00 Pantoprazole Sodium (Protonix) 40 mg DAILYAC PO ; Start 05/05/18 at 07:30 Active Scripts Active Reported Lisinopril 10 Mg Tablet 10 Mg PO DAILY LAST DOSE GIVEN: DATE: TIME: NEXT DOSE DUE: DATE: TIME: Amlodipine Besylate 2.5 Mg Tablet 2.5 Mg PO DAILY LAST DOSE GIVEN: DATE: TIME: NEXT DOSE DUE: DATE: TIME: Atorvastatin Calcium 20 Mg Tablet 20 Mg PO QHS LAST DOSE GIVEN: DATE: TIME: NEXT DOSE DUE: DATE: TIME: Glipizide 10 Mg Tablet 10 Mg PO DAILY LAST DOSE GIVEN: DATE: TIME: NEXT DOSE DUE: DATE: TIME: Metformin Hcl 1,000 Mg Tablet 1,000 Mg PO BIDWMEALS LAST DOSE GIVEN: DATE: TIME: NEXT DOSE DUE: DATE: TIME: Aspirin 81 Mg Tab.chew 81 Mg PO DAILY LAST DOSE GIVEN: DATE: TIME: NEXT DOSE DUE: DATE: TIME: Protonix (Pantoprazole Sodium) 40 Mg Tablet.dr 1 Tab PO DAILY LAST DOSE GIVEN: DATE: TIME: NEXT DOSE DUE: DATE: TIME: Allergies: Coded Allergies: Sulfa (Sulfonamide Antibiotics) (Verified Allergy, Intermediate, 03/27/18) diphenhydramine (Verified Allergy, Intermediate, 03/27/18) morphine (Verified Allergy, Intermediate, 03/27/18) prochlorperazine (Verified Allergy, Intermediate, 03/27/18) sulfamethoxazole (Verified Allergy, Intermediate, 03/27/18) trimethoprim (Verified Allergy, Intermediate, 03/27/18) Respiratory: YES: SOB with excertion Cardiovascular: yes: Chest Pain General: No acute distress HEENT: Atraumatic Lungs: Other (slightly decreased breath sounds.) Heart: Regular rate Abdomen: Normal bowel sounds VITALS Vital Signs Date Time Temp Pulse Resp B/P (MAP) Pulse Ox O2 Delivery O2 Flow Rate FiO2 05/04/18 12:28 72 20 157/94 (115) 96 Room Air 05/04/18 05:51 98.2 Labs Laboratory Tests Test 05/03/18 22:15 05/03/18 22:20 05/04/18 05:32 05/04/18 07:46 White Blood Count 6.5 x10^3/uL (4.0-11.0) Red Blood Count 4.25 x10^6/uL (3.50-5.40) Hemoglobin 12.5 g/dL (12.0-15.5) Hematocrit 37.8 % (36.0-47.0) Mean Corpuscular Volume 89 fL (79-100) Mean Corpuscular Hemoglobin 30 pg (25-35) Mean Corpuscular Hemoglobin Concent 33 g/dL (31-37) Red Cell Distribution Width 14.7 % (11.5-14.5) Platelet Count 583 x10^3/uL (140-400) Neutrophils (%) (Auto) 43 % (31-73) Lymphocytes (%) (Auto) 45 % (24-48) Monocytes (%) (Auto) 8 % (0-9) Eosinophils (%) (Auto) 1 % (0-3) Basophils (%) (Auto) 2 % (0-3) Neutrophils # (Auto) 2.8 x10^3uL (1.8-7.7) Lymphocytes # (Auto) 2.9 x10^3/uL (1.0-4.8) Monocytes # (Auto) 0.5 x10^3/uL (0.0-1.1) Eosinophils # (Auto) 0.1 x10^3/uL (0.0-0.7) Basophils # (Auto) 0.2 x10^3/uL (0.0-0.2) Prothrombin Time 9.6 SEC (9.4-11.4) Prothromb Time International Ratio 1.0 (0.9-1.1) Activated Partial Thromboplast Time 24 SEC (23-33) D-Dimer (Milly) 0.82 mg/L (0.00-0.50) Sodium Level 140 mmol/L (136-145) Potassium Level 3.8 mmol/L (3.5-5.1) Chloride Level 104 mmol/L (98-107) Carbon Dioxide Level 27 mmol/L (21-32) Anion Gap 9 (6-14) Blood Urea Nitrogen 11 mg/dL (7-20) Creatinine 1.0 mg/dL (0.6-1.0) Estimated GFR (Cockcroft-Gault) 68.4 Glucose Level 102 mg/dL (70-99) Calcium Level 8.8 mg/dL (8.5-10.1) Magnesium Level 2.2 mg/dL (1.8-2.4) Total Bilirubin 0.2 mg/dL (0.2-1.0) Direct Bilirubin < 0.1 mg/dL (0.0-0.2) Aspartate Amino Transf (AST/SGOT) 12 U/L (15-37) Alanine Aminotransferase (ALT/SGPT) 13 U/L (14-59) Alkaline Phosphatase 70 U/L (46-116) Creatine Kinase 95 U/L (26-192) Troponin I Quantitative < 0.017 ng/mL (0-0.055) < 0.017 ng/mL (0-0.055) KO-Lyq-I-Type Natriuretic Peptide 124 pg/mL (0-124) Total Protein 7.4 g/dL (6.4-8.2) Albumin 3.2 g/dL (3.4-5.0) Triglycerides Level 126 mg/dL (0-150) Cholesterol Level 191 mg/dL (0-200) LDL Cholesterol, Calculated 116 mg/dL (0-100) VLDL Cholesterol, Calculated 25 mg/dL (0-40) Non-HDL Cholesterol Calculated 141 mg/dL (0-129) HDL Cholesterol 50 mg/dL (40-60) Cholesterol/HDL Ratio 3.0 Lipase 113 U/L (73-393) Thyroid Stimulating Hormone (TSH) 6.644 uIU/mL (0.358-3.740) Urine Collection Type Unknown Urine Color Yellow Urine Clarity Clear Urine pH 7.0 Urine Specific [place] 1.010 Urine Protein Neg (NEG-TRACE) Urine Glucose (UA) Neg mg/dL (NEG) Urine Ketones (Stick) Neg mg/dL (NEG) Urine Blood Trace (NEG) Urine Nitrite Neg (NEG) Urine Bilirubin Neg (NEG) Urine Urobilinogen Dipstick 1 mg/dL (0.2 mg/dL) Urine Leukocyte Esterase Trace (NEG) Urine RBC 1-2 /HPF (0-2) Urine WBC Occ /HPF (0-4) Urine Squamous Epithelial Cells Few /LPF Urine Bacteria 0 /HPF (0-FEW) Urine Opiates Screen Neg (NEG) Urine Methadone Screen Neg (NEG) Urine Barbiturates Neg (NEG) Urine Phencyclidine Screen Neg (NEG) Urine Amphetamine/Methamphetamine Neg (NEG) Urine Benzodiazepines Screen Neg (NEG) Urine Cocaine Screen Neg (NEG) Urine Cannabinoids Screen Neg (NEG) Urine Ethyl Alcohol Neg (NEG) Glucose (Fingerstick) 89 mg/dL (70-99) Test 05/04/18 11:40 05/04/18 11:51 Troponin I Quantitative < 0.017 ng/mL (0-0.055) Glucose (Fingerstick) 192 mg/dL (70-99) Images CT scan of the chest showed a masslike opacity in the left upper lobe. Assessment/Plan 1. Chest pain. Pain has largely resolved. Troponins have been normal. Catheterization approximately one month ago which showed only mild coronary disease. Will continue on medical treatment for mild coronary artery disease. LV function is normal. 2. Hypertension. Reasonable control. Continue present medications and adjust as needed. 3. Hyperlipidemia. Continue with treatment with statins. 4. Diabetes mellitus. As per the primary service. Thank you for allowing us to participate in the care of your patient. GEORGINA CLEANING MD May 04, 2018 13:36
[2018-05-04 13:38] VITALS: BP 157/94
[2018-05-04] MEDS ORDERED: oxyCODONE IR 5 MG TABLET PO PRN (14:15)
--- NOTE | 2018-05-04 14:39 | SSS ---
ADMIT DATE: 05/04/2018 HISTORY OF PRESENT ILLNESS: The patient is a 58-year-old -[place] female patient who came to the Emergency Room complaining that she is having chest pain. She stated she was up moving around and she developed left-sided chest pain that she describes as palpitation. She denied any nausea or vomiting. Denied any diaphoresis. Did complain of shortness of breath and mild discomfort in her left shoulder that has responded to nitroglycerin. She was seen in the Emergency Room and was extensively investigated. Her first troponin was less than 0.017 and her EKG showed that she was in sinus rhythm at 62 beats per minute with no finding consistent with ST segment elevation. Her x-ray showed borderline cardiac silhouette, no free air under diaphragm. She does have left upper lobe opacity and CT scan showed that she has no obvious large central pulmonary embolism. She does have hiatal hernia, does have small pericardial effusion, does have a left upper lobe infiltrate or opacity, but did not notice any lesions in CT cuts through the liver. No significant hilar adenopathy. No formal report was available. The patient did have cardiac catheterization at [facility] and at that time, the blood flow in her coronary arteries was slow and she was started on amlodipine as well as Eliquis, but her primary care physician advised not to do that and she was advised to seek another second opinion at [facility]. In fact, she is scheduled to see Dr. Ovalle, mannequin mold maker, at [facility] next 05/08/2018. She did have 2 sets of cardiac enzymes that ruled out myocardial infarction. She was seen by the mannequin mold maker, who did not recommend any further ischemic workup, but she has already had a cardiac catheterization done and therefore, the plan was to discharge her home to follow with Dr. Ovalle to keep her appointment next Sunday. PAST MEDICAL HISTORY: Significant for type 2 diabetes, hypertension, hyperlipidemia, gastroesophageal reflux disease, diabetic neuropathy. She has bilateral cataracts and obstructive sleep apnea. She also complained of dysphagia. She has had esophageal stricture due to severe reflux esophagitis for which she underwent dilatation twice at [facility]. PAST SURGICAL HISTORY: Significant for esophagogastroduodenoscopy with dilatation, esophageal stricture x 2, colonoscopy, right rotator cuff repair, , total abdominal hysterectomy, bilateral salpingo-oophorectomy. She has also laser surgery for brain tumors done at [facility] and followed by ____, neurosurgeon, at [facility]. She has not seen him for almost 3 years now. She used to have an MRI done every year. ALLERGIES: SHE IS ALLERGIC TO SULFA DRUGS, BENADRYL, MORPHINE, COMPAZINE, AND BACTRIM. MEDICATIONS: She is on atorvastatin calcium 20 mg at bedtime, lisinopril 10 mg once a day, aspirin 81 mg once a day, amlodipine 2.5 mg once a day, Protonix 40 mg once a day, metformin 1000 mg twice a day, Glipizide 10 mg daily. FAMILY HISTORY: She has 1 brother and 2 sisters. Her father at age of 69 because of diabetic complication. He was alcoholic. Her mother when she was only 1 years old, does not know the cause of her . SOCIAL HISTORY: She is , has 2 daughters. She does not smoke or drink alcohol. She is currently on disability. REVIEW OF SYSTEMS: The patient denied any blurring of vision, did have bilateral cataract for which she was supposed to have surgery done. She denied any diabetic retinopathy. Denied any glaucoma or macular degeneration. Denied any earache, tinnitus or sensorineural deafness. Denied any nosebleeds, stuffy nose or postnasal drip. Denied any sore throat, sore tongue, toothache, hoarseness of voice, but did complain of difficulty swallowing. She has also lost about 13 pounds over the last 6 months. She denied any nausea, vomiting, diarrhea, or constipation. Denied any hematemesis, melena or hematochezia. Denied any dysuria, frequency or hematuria. She did complain of left-sided chest pain. Denied any cough, phlegm or hemoptysis. Denied any chills, rigors or fever. PHYSICAL EXAMINATION: GENERAL: On examining her, she looked well and was clearly in no apparent respiratory distress, slightly pale, but no jaundice, cyanosis, or thyromegaly. No jugular venous distension. No limb edema. VITAL SIGNS: Her heart rate was 65, blood pressure 149/89, temperature was 98.5, respiratory rate was 18 and oxygen saturation was 97% on room air. HEAD, EYES, EARS, NOSE AND THROAT: Showed normocephalic, atraumatic. NECK: Supple. HEART: Showed normal first and second sounds. No gallop, rub or murmur. CHEST: Clear to auscultation. No crepitation or rhonchi. ABDOMEN: Distended, soft, nontender. NEUROLOGIC: She is awake, alert, responding appropriately. All cranial nerves intact. EXTREMITIES: She moves extremities without difficulty. She ambulates with a walker. LABORATORY AND DIAGNOSTIC DATA: On admission showed a white cell count of 6500, hemoglobin 12.5, hematocrit 37.8, MCV 89 and platelet count of 583,000. Her chemistry showed a serum sodium 140, potassium 3.8, chloride 104, bicarbonate 27, anion gap of 9, BUN 11, creatinine 1, estimated GFR was 68 mL per minute. Her glucose was 102. Her calcium was 8.8, magnesium was 2.2. Total bilirubin, AST, ALT, alkaline phosphatase were normal. Her beta natriuretic peptide was 124. Total protein was 7.4, albumin 3.2. Lipase was 113. Her prothrombin time was 9.6, INR of 1, aPTT was 24 and D-dimer was 0.82. The patient has 3 sets of cardiac enzymes that ruled out myocardial infarction. Her urinalysis was essentially unremarkable. The urine was yellow, clear with a pH of 7, specific gravity of 1.010. The urine was negative for protein, glucose, ketones. There was trace of blood, negative for nitrite and there was trace of leukocyte esterase, 1-2 rbc's, occasional wbc's, no bacteria and her toxic screen was negative. Her chest x-ray showed that the heart is not enlarged; mediastinal and hilar contours are normal. No focal parenchymal airspace opacity. No pleural effusion or pneumothorax. Given her elevated D-dimer, she underwent Doppler ultrasound of lower extremities, showed that the common femoral vein including the saphenofemoral junction are normal in appearance. Color and spectral Doppler evaluation demonstrates normal spontaneous flow augmentation and phasicity. There were brachial veins and visualized calf veins also demonstrate normal compressibility and flow and the impression is that there is no evidence of bilateral lower extremity DVT. The CT scan showed the patient has dense opacity in the left upper lung anteriorly measuring approximately 20 x 12 mm. She has mild ground glass opacities, no evidence of pneumothorax; moderate hiatal hernia. She has small pericardial effusion, small fluid in the pericardial recess, portion of the ascending thoracic aorta is obscured by motion. Degenerative changes of the spine with osteophyte formation. No central pulmonary embolus, but limited peripherally secondary to motion. IMPRESSION: The patient has no central pulmonary emboli, mass-like opacity in left upper lung could be secondary to infection or inflammatory cause, but the short interval followup will be needed to ensure that this resolves to ensure that there is not secondary to malignancy or neoplasm. There is some subtle ground glass opacities could be from small airway inflammation or edema. ASSESSMENT AND PLAN: The patient will be discharged back on all her current medications and to follow with Dr. Ovalle, the mannequin mold maker, and her primary care physician at the [facility]. BEVERLY RESENDIZ MD DR: ISABELLE/nts JOB#: [id number] / [id number]
[2018-05-04] MEDS ORDERED: ATORVASTATIN CALCIUM 20 MG TABLET PO SCH (21:00)
[2018-05-05] MEDS ORDERED: PANTOPRAZOLE 40 MG TABLET. PO SCH (07:30)
[2018-05-05] MEDS ORDERED: ASPIRIN 81 MG TAB.CHEW PO SCH (08:00)
[2018-05-05] MEDS ORDERED: glipiZIDE 5 MG TABLET PO SCH (08:00)
[2018-05-05] MEDS ORDERED: amLODIPine BESYLATE 2.5 MG TABLET PO SCH (09:00)
[2018-05-06] MEDS ORDERED: metFORMIN 500 MG TABLET PO SCH (08:00)
== END 2018-05-04 14:19 | disposition home or self-care (01) | DRG 194 ==
LOC: ER 21:57 → 1 SOUTH 05-04 01:00
PROVIDERS: ADMIT Internal Medicine; ATTEND Internal Medicine
DX: J18.9 Pneumonia, unspecified organism (principal); I31.3 Pericardial effusion (noninflammatory); E11.40 Type 2 diabetes mellitus with diabetic neuropathy, unspecified; E78.5 Hyperlipidemia, unspecified; G47.33 Obstructive sleep apnea (adult) (pediatric); I10 Essential (primary) hypertension; I25.10 Atherosclerotic heart disease of native coronary artery without angina pectoris; J40 Bronchitis, not specified as acute or chronic; K21.9 Gastro-esophageal reflux disease without esophagitis; M19.90 Unspecified osteoarthritis, unspecified site; R13.10 Dysphagia, unspecified; Z82.49 Family history of ischemic heart disease and other diseases of the circulatory system; Z83.3 Family history of diabetes mellitus; Z90.710 Acquired absence of both cervix and uterus; Z79.899 Other long term (current) drug therapy; Z88.6 Allergy status to analgesic agent; Z88.1 Allergy status to other antibiotic agents; Z88.2 Allergy status to sulfonamides; Z88.8 Allergy status to other drugs, medicaments and biological substances
CPT/HCPCS: 36415; 71046; 71275; 80048; 80061; 80076; 80307; 81001; 82550; 82947; 83690; 83735; 83880; 84443; 84484; 85025; 85379; 85610; 85730; 87086; 93005; 93970; 96361; 96372; 96374; 96375; 96376; J1650; J2405; J3010; J3490; Q9967; 99285-25; J7030

== ENCOUNTER 2018-08-10 09:55 | Emergency (ER) | payer OTHER ==
[~2018-08-10] VITALS: Ht 157.5 cm; Wt 88.5 kg
[~2018-08-10 09:55] MED LIST changes: +AMLO2.5T5 PO; +APIX5TAB3 PO; +ATOR20TA58 PO; +LISI10TA2 PO; +METO25TA4 PO
[2018-08-10 10:00] VITALS: BP 169/91
--- NOTE | 2018-08-10 10:20 | PHYS DOC ---
Past History Past Medical History: Arthritis, CAD, Diabetes, Heart Disease, Hypertension, Other Past Surgical History: , Hysterectomy Smoking: Non-smoker Alcohol Use: None Drug Use: None Adult General Chief Complaint Chief Complaint: FLU SYMPTOM HPI HPI 4-year-old female presents with cough, congestion, headache, and chills for the last 4 days. Patient has been trying [id number] cold remedies without relief. She is having a difficult time sleeping. She has not had a measured fever but has had hot and cold chills. She has not had any vomiting, diarrhea, shortness of breath or chest pain. Review of Systems Review of Systems Constitutional: Denies fever or chills [] Eyes: Denies change in visual acuity, redness, or eye pain [] HENT: Nasal congestion[] Respiratory: Cough without shortness of breath [] Cardiovascular: No additional information not addressed in HPI [] GI: Denies abdominal pain, nausea, vomiting, bloody stools or diarrhea [] : Denies dysuria or hematuria [] Musculoskeletal: Denies back pain or joint pain [] Integument: Denies rash or skin lesions [] Neurologic: Denies headache, focal weakness or sensory changes [] Endocrine: Denies polyuria or polydipsia [] All other systems were reviewed and found to be within normal limits, except as documented in this note. Allergies Allergies Allergies Coded Allergies Type Severity Reaction Last Updated Verified Sulfa (Sulfonamide Antibiotics) Allergy Intermediate 03/27/18 Yes diphenhydramine Allergy Intermediate 03/27/18 Yes morphine Allergy Intermediate 03/27/18 Yes prochlorperazine Allergy Intermediate 03/27/18 Yes sulfamethoxazole Allergy Intermediate 03/27/18 Yes trimethoprim Allergy Intermediate 03/27/18 Yes Physical Exam Physical Exam Constitutional: Well developed, well nourished, no acute distress, non-toxic appearance. [] HENT: Normocephalic, atraumatic, bilateral external ears normal, oropharynx moist, no oral exudates, nose congestion. [] Eyes: PERRLA, EOMI, conjunctiva normal, no discharge. [] Neck: Normal range of motion, no tenderness, supple, no stridor. [] Cardiovascular:Heart rate regular rhythm, no murmur [] Lungs & Thorax: Bilateral breath sounds clear to auscultation. Coughing [] Abdomen: Bowel sounds normal, soft, no tenderness, no masses, no pulsatile masses. [] Skin: Warm, dry, no erythema, no rash. [] Back: No tenderness, no CVA tenderness. [] Extremities: No tenderness, no cyanosis, no clubbing, ROM intact, no edema. [] Neurologic: Alert and oriented X 3, normal motor function, normal sensory function, no focal deficits noted. [] Psychologic: Affect normal, judgement normal, mood normal. [] EKG EKG [] Radiology/Procedures Radiology/Procedures [] Course & Med Decision Making Course & Med Decision Making Pertinent Labs and Imaging studies reviewed. (See chart for details) Patient's influenza is negative. Believe she has has another viral illness. I will treat her with 1 L normal saline, 10 mg Reglan, 30 mg of Toradol for her headache. I will also give her Tessalon Perles 100 mg. patient's labs are unremarkable. She is stable for discharge at this time. [] Dragon Disclaimer Dragon Disclaimer This electronic medical record was generated, in whole or in part, using a voice recognition dictation system. Departure Departure: Impression: Primary Impression: URI with cough and congestion Additional Impressions: Headache Sinusitis Disposition: HOME, SELF-CARE Condition: STABLE Referrals: NON,STAFF (PCP) Patient Instructions: Upper Respiratory Infection, Adult, [id number] Scripts Amoxicillin/Potassium Clav (AUGMENTIN 875-125 TABLET) 1 Each Tablet 1 TAB PO BID for sinusitis, #14 TAB Prov: GUILLERMINA STARKS DO 08/10/18 Benzonatate (TESSALON PERLE) 100 Mg Capsule 1 CAP PO TID PRN for COUGH, #30 CAP Prov: GUILLERMINA STARKS DO 08/10/18 Problem Qualifiers Additional Impressions: Headache Headache type: unspecified Headache chronicity pattern: acute headache Intractability: not intractable Qualified Codes: R51 - Headache Sinusitis Sinusitis location: frontal Chronicity: acute Recurrence: non-recurrent Qualified Codes: J01.10 - Acute frontal sinusitis, unspecified GUILLERMINA STARKS DO Aug 10, 2018 10:20
[2018-08-10] MEDS ORDERED: ONDANSETRON ODT 4 MG TAB.RAPDIS ONE (10:26)
[2018-08-10] MEDS ORDERED: BENZONATATE 100 MG CAPSULE. PO ONE (10:30)
[2018-08-10 10:37] LABS: INFLUENZA A PATIENT NEGATIVE (NEGATIVE); INFLUENZA B PATIENT NEGATIVE (NEGATIVE)
[2018-08-10] MEDS ORDERED: ONDANSETRON ODT 4 MG TAB.RAPDIS PO ONE (10:45)
[2018-08-10] MEDS ORDERED: IV NORMAL SALINE 1,000ML 1,000 ML IV ONE (11:15)
[2018-08-10 11:27] LABS: BASO % 1 % (0-3); EOS # 0.2 x10^3/uL (0.0-0.7); EOS % 6 % (0-3); HEMATOCRIT 40.4 % (36.0-47.0); HEMOGLOBIN 13.7 g/dL (12.0-15.5); LYMPH % 27 % (24-48); MEAN CORPUSCULAR HEMOGLOBIN 30 pg (25-35); MEAN CORPUSCULAR HGB CONC 34 g/dL (31-37); MEAN CORPUSCULAR VOLUME 88 fL (79-100); MONO # 0.4 x10^3/uL (0.0-1.1); MONO % 12 % (0-9); NEUT # 1.9 x10^3uL (1.8-7.7); NEUT % 54 % (31-73); PLATELET COUNT 506 x10^3/uL (140-400); RED BLOOD COUNT 4.61 x10^6/uL (3.50-5.40); RED CELL DISTRIBUTION WIDTH 13.5 % (11.5-14.5); WHITE BLOOD COUNT 3.5 x10^3/uL (4.0-11.0)
[2018-08-10] MEDS ORDERED: METOCLOPRAMIDE HCL 10 MG/2 ML VIAL. IV ONE (11:30)
[2018-08-10] MEDS ORDERED: KETOROLAC 30 MG/ML VIAL. IV ONE (11:30)
[2018-08-10 11:41] LABS: ALBUMIN 3.6 g/dL (3.4-5.0); ALBUMIN/GLOBULIN RATIO 0.8 (1.0-1.7); CREATININE 0.9 mg/dL (0.6-1.0); GFR 77.3; POTASSIUM 4.2 mmol/L (3.5-5.1); TOTAL BILIRUBIN 0.4 mg/dL (0.2-1.0); TOTAL PROTEIN 8.1 g/dL (6.4-8.2)
[2018-08-10] MEDS ORDERED: AMOX1TAB61 PO (12:18)
[2018-08-10] MEDS ORDERED: BENZ100C PO (12:18)
== END 2018-08-10 12:20 | disposition home or self-care (01) ==
LOC: ER 09:55
DX: J01.90 Acute sinusitis, unspecified (principal); R51 Headache; M19.90 Unspecified osteoarthritis, unspecified site; I25.10 Atherosclerotic heart disease of native coronary artery without angina pectoris; E11.9 Type 2 diabetes mellitus without complications; I11.9 Hypertensive heart disease without heart failure; Z88.2 Allergy status to sulfonamides; Z88.5 Allergy status to narcotic agent; Z88.8 Allergy status to other drugs, medicaments and biological substances; Z88.1 Allergy status to other antibiotic agents
CPT/HCPCS: 36415; 80053; 85025; 87804; 96374; 96375; 99283; J1885; J2765; Q0162; J7030

== ENCOUNTER 2019-04-14 11:46 | Inpatient (IN) | payer OTHER ==
[~2019-04-14] VITALS: Ht 157.5 cm; Wt 85.3 kg
[~2019-04-14 11:46] MED LIST changes: +AMOX1TAB61 PO; +BENZ100C PO
[2019-04-14] MEDS ORDERED: IV NORMAL SALINE 1,000ML 1,000 ML IV SCH (12:18)
--- NOTE | 2019-04-14 12:21 | PHYS DOC ---
Past History Past Medical History: CHF, High Cholesterol, Hypertension Past Surgical History: No Surgical History Smoking: Non-smoker Alcohol Use: None Drug Use: None Adult General Chief Complaint Chief Complaint: FLU SYMPTOM HPI HPI Patient is a 58-year-old female who presents with complaint of fever, body aches and chills as well as headache for the last few days. Patient states that symptoms are progressively getting worse. She denies any vomiting or diarrhea.[] Review of Systems Review of Systems Constitutional: Complains of fever and chills [] Eyes: Denies change in visual acuity, redness, or eye pain [] HENT: Complains of congestion and sore throat [] Respiratory: Complains of cough without shortness of breath [] Cardiovascular: No additional information not addressed in HPI [] GI: Denies abdominal pain, nausea, vomiting or diarrhea [] Integument: Denies rash or skin lesions [] Neurologic: Complains of headache without focal weakness or sensory changes [] All other systems were reviewed and found to be within normal limits, except as documented in this note. Allergies Allergies Allergies Coded Allergies Type Severity Reaction Last Updated Verified Sulfa (Sulfonamide Antibiotics) Allergy Intermediate 03/27/18 Yes diphenhydramine Allergy Intermediate 03/27/18 Yes morphine Allergy Intermediate 03/27/18 Yes prochlorperazine Allergy Intermediate 03/27/18 Yes sulfamethoxazole Allergy Intermediate 03/27/18 Yes trimethoprim Allergy Intermediate 03/27/18 Yes Physical Exam Physical Exam Constitutional: Well developed, well nourished, no acute distress, non-toxic appearance. [] HENT: Normocephalic, atraumatic, bilateral external ears normal, oropharynx moist, no oral exudates, nose normal. [] Eyes: PERRLA, EOMI, conjunctiva normal, no discharge. [] Neck: Normal range of motion, no tenderness, supple, no stridor. [] Cardiovascular:Heart rate regular rhythm, no murmur [] Lungs & Thorax: Bilateral breath sounds clear to auscultation [] Abdomen: Bowel sounds normal, soft, no tenderness, no masses, no pulsatile masses. [] Skin: Warm, dry, no erythema, no rash. [] Back: No tenderness, no CVA tenderness. [] Extremities: No tenderness, no cyanosis, no clubbing, ROM intact, no edema. [] Neurologic: Alert and oriented X 3, normal motor function, normal sensory function, no focal deficits noted. [] Psychologic: Affect normal, judgement normal, mood normal. [] Current Patient Data Vital Signs Vital Signs Date Time Temp Pulse Resp B/P (MAP) Pulse Ox O2 Delivery O2 Flow Rate FiO2 04/14/19 12:08 100.5 117 22 97 Room Air EKG EKG [] Radiology/Procedures Radiology/Procedures [] Impressions: PROCEDURE: PORTABLE CHEST 1V Single AP view of the chest. Comparison: 05/03/2018. Indication: Fever Findings: The heart is at the upper limits of normal but stable. There is no pneumothorax or effusion. No air space or interstitial disease. Impression: 1. No acute cardiopulmonary process. Electronically signed by: Avtar Serrano MD (04/14/2019 12:47 PM) [facility] Course & Med Decision Making Course & Med Decision Making Pertinent Labs and Imaging studies reviewed. (See chart for details) [] Dragon Disclaimer Dragon Disclaimer This electronic medical record was generated, in whole or in part, using a voice recognition dictation system. Departure Departure: Impression: Primary Impression: Upper respiratory infection Additional Impressions: Fever Conjunctivitis Elevated lactic acid level Disposition: ADMITTED INPATIENT Admitting Physician: Corazon Cunningham Condition: IMPROVED Referrals: PCP,NO (PCP) Problem Qualifiers Primary Impression: Upper respiratory infection URI type: unspecified URI Qualified Codes: J06.9 - Acute upper respiratory infection, unspecified Additional Impressions: Fever Fever type: unspecified Qualified Codes: R50.9 - Fever, unspecified Conjunctivitis Conjunctivitis type: acute Acute conjunctivitis type: bacterial Laterality: right Qualified Codes: H10.31 - Unspecified acute conjunctivitis, right eye LAURENCE URRUTIA Jr. DO Apr 14, 2019 12:20
--- NOTE | 2019-04-14 12:50 | RAD ---
Single AP view of the chest. Comparison: 05/03/2018. Indication: Fever Findings: The heart is at the upper limits of normal but stable. There is no pneumothorax or effusion. No air space or interstitial disease. Impression: 1. No acute cardiopulmonary process. Electronically signed by: Avtar Serrano MD (04/14/2019 12:47 PM) [facility]
[2019-04-14 13:21] LABS: BASO # 0.1 x10^3/uL (0.0-0.2); BASO % 1 % (0-3); EOS % 0 % (0-3); HEMATOCRIT 36.8 % (36.0-47.0); HEMOGLOBIN 12.6 g/dL (12.0-15.5); LYMPH # 0.9 x10^3/uL (1.0-4.8); LYMPH % 10 % (24-48); MEAN CORPUSCULAR HEMOGLOBIN 30 pg (25-35); MEAN CORPUSCULAR HGB CONC 34 g/dL (31-37); MEAN CORPUSCULAR VOLUME 87 fL (79-100); MONO # 0.6 x10^3/uL (0.0-1.1); MONO % 7 % (0-9); NEUT # 7.2 x10^3uL (1.8-7.7); NEUT % 82 % (31-73); PLATELET COUNT 455 x10^3/uL (140-400); RED BLOOD COUNT 4.21 x10^6/uL (3.50-5.40); RED CELL DISTRIBUTION WIDTH 13.7 % (11.5-14.5); WHITE BLOOD COUNT 8.7 x10^3/uL (4.0-11.0)
[2019-04-14 13:49] LABS: ALBUMIN 3.4 g/dL (3.4-5.0); ALBUMIN/GLOBULIN RATIO 0.8 (1.0-1.7); CREATININE 1.1 mg/dL (0.6-1.0); GFR 61.3; POTASSIUM 3.4 mmol/L (3.5-5.1); TOTAL BILIRUBIN 0.6 mg/dL (0.2-1.0); TOTAL PROTEIN 7.9 g/dL (6.4-8.2)
[2019-04-14 13:56] LABS: INFLUENZA A PATIENT NEGATIVE (NEGATIVE); INFLUENZA B PATIENT NEGATIVE (NEGATIVE)
[2019-04-14] MEDS ORDERED: ACETAMINOPHEN 500 MG TABLET PO ONE (16:03)
[2019-04-14 16:27] LABS: BACTERIA,URINE FEW /HPF (0-FEW); BILIRUBIN,URINE NEG (NEG); CLARITY,URINE HAZY; COLOR,URINE YELLOW; GLUCOSE,URINE NEG (NEG); NITRITE,URINE NEG (NEG); SQUAMOUS EPITHELIAL CELL,UR OCC /LPF; UROBILINOGEN,URINE 1 mg/dL (0.2 mg/dL); WBC,URINE OCC /HPF (0-4)
[2019-04-14] MEDS ORDERED: ERYTHROMYCIN 0.5% OPHTH OINTMENT 1GM TUBE. OD ONE (16:45)
[2019-04-14] MEDS ORDERED: IV NORMAL SALINE 50ML 50 ML ONE (16:48)
[2019-04-14] MEDS ORDERED: cefTRIAXone SODIUM 1 GM VIAL ONE (16:48)
[2019-04-14 18:33] VITALS: BP 147/82
--- NOTE | 2019-04-14 18:33 | NUR ---
Pt arrived via EMS to [address] at 1830. Bed is in lowest position, call light within reach. Pt educated to floor and unit policies, pt is alert and oriented x 4. Pt is able to state wants and needs. Pt BP- 147-82. Pt is pleasant. Non-skid socks applied. Temp-99.3, pt is now up in bed eating in bed.
[2019-04-14] MEDS ORDERED: POTASSIUM CHLORIDE 20 MEQ TABLET.ER. PO ONE (19:30)
--- NOTE | 2019-04-14 21:59 | NUR ---
Rocephin given in ER.
[2019-04-14] MEDS ORDERED: ONDANSETRON ODT 4 MG TAB.RAPDIS PO PRN (22:15)
[2019-04-14] MEDS: GABAPENTIN 100 MG CAPSULE. PO SCH (22:18)
[2019-04-14 23:14] VITALS: BP 154/88
[2019-04-15 06:21] VITALS: BP 152/77
[2019-04-15] MEDS: GABAPENTIN 100 MG CAPSULE. PO SCH ×3 (08:59→21:55)
[2019-04-15] MEDS: metFORMIN 500 MG TABLET PO SCH ×2 (08:59→18:09)
[2019-04-15] MEDS: LOSARTAN 50 MG TABLET. PO SCH (08:59)
[2019-04-15] MEDS: FUROSEMIDE 20 MG TABLET PO SCH (09:00)
[2019-04-15] MEDS: ATENOLOL 25 MG TABLET PO SCH (09:00)
[2019-04-15] MEDS: VITAMIN E 1,000 UNIT CAPSULE. PO SCH (09:00)
[2019-04-15] MEDS: SPIRONOLACTONE 25 MG TABLET PO SCH (09:01)
[2019-04-15 11:31] VITALS: BP 148/85
--- NOTE | 2019-04-15 14:09 | HP ---
ADMIT DATE: 04/14/2019 HISTORY OF PRESENT ILLNESS: The patient is a 58-year-old -U[place]and[place] female patient who apparently came to the Emergency Room with complaint of fever, body aches and chills as well as headache and stuffy nose for the last few days, though her symptoms started last Sunday. She had had a flu shot about a week ago. Her symptoms have been getting worse; however, she denied any nausea or vomiting. Denied any diarrhea. Denied any cough, phlegm or hemoptysis. She was actually extensively investigated in the Emergency Room and in fact most of her lab works are well within normal range. Her white cell count, hemoglobin, hematocrit, and platelets are all normal. Her chemistry, she has mild hypokalemia; however and also slight hydration, but other than that she seems to be all within normal range. Urinalysis was essentially unremarkable. There was only 6-10 rbc's, no wbc's, and no bacteria. Her influenza A and B were negative. Group A streptococcus rapid test was negative and her chest x-ray was showed the heart is at the upper limit of normal, but stable. There is no pneumothorax or effusion. No airspace or interstitial disease. The patient was admitted for further evaluation and treatment. She also had had cataract extraction from the right eye and since then, she has inflammation in her right eye for which she has received multiple eye drops from her treating relations liaison from [facility]. PAST MEDICAL HISTORY: Significant for type 2 diabetes, hypertension, and hyperlipidemia, also diastolic congestive heart failure, morbid obesity, obstructive sleep apnea, on CPAP. PAST SURGICAL HISTORY: Significant for left heart catheterization twice. She has right eye cataract extraction, tonsillectomy, and spinal epidural steroid injection. She has right rotator cuff tear surgery, and colonoscopy. ALLERGIES: SHE IS ALLERGIC TO SULFA DRUGS, DIPHENHYDRAMINE, MORPHINE, COMPAZINE, SULFAMETHOXAZOLE, AND TRIMETHOPRIM. MEDICATIONS: She is currently on amoxicillin/clavulanic acid 875 mg/125 mg twice a day, atorvastatin calcium 20 mg at bedtime, amlodipine besylate 2.5 mg once a day, lisinopril 10 mg once a day, aspirin 81 mg once a day, benzonatate 100 mg 3 times a day, Protonix 40 mg daily, metformin 1000 mg twice a day. She is on glipizide 10 mg once a day. FAMILY HISTORY: She has 1 brother and 2 sisters who apparently healthy. Her father at the age of 69 because of complication of diabetes and mother in her 30s. At that time, she was only 1 years old. SOCIAL HISTORY: Single, never , has 2 daughters. She does not smoke, drink alcohol, or use any recreational drugs. 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 REVIEW OF SYSTEMS: The patient did have right cataract extraction, but denied any blurring of vision, glaucoma, or macular degeneration and she is deaf in her left ear and to a lesser extent on the right ear. Denied any nosebleeds. Denies stuffy nose. Denied any sore throat, sore tongue, toothache, hoarseness of voice or difficulty swallowing. Denied any nausea, vomiting, diarrhea or constipation. Denied any hematemesis, melena or hematochezia. Denied any dysuria, frequency or hematuria. Denied any chest pain, shortness of breath, cough, phlegm or hemoptysis. Denied any chills, rigors or fever. Did complain of dizziness that improved when she closed her eyes. PHYSICAL EXAMINATION: GENERAL: On arrival to the Emergency Room, the patient was febrile at 100.5 degrees Fahrenheit. There was no pallor, jaundice, cyanosis or thyromegaly. No jugular venous distention. No limb edema. VITAL SIGNS: Her heart rate was 117, blood pressure was 147/82, temperature was 100.7, respiratory rate was 22 and oxygen saturation was 97%. HEAD, EYES, EARS, NOSE AND THROAT: Showed normocephalic, atraumatic. NECK: Supple. HEART: Showed normal first and second heart sounds. No gallop or murmur. CHEST: Clear to auscultation. No crepitation or rhonchi. ABDOMEN: Distended, soft, nontender. NEUROLOGIC: She was awake, alert, responding appropriately. All cranial nerves intact. EXTREMITIES: She moves extremities without difficulty. She ambulates without assistance or assistive devices. LABORATORY DATA: On admission showed that her white cell count was 8700, hemoglobin 12.6, hematocrit 36.8, MCV 87 and platelet count of 155,000 with normal manual differential. Her chemistry showed a serum sodium 134, potassium 3.4, chloride 99, bicarbonate 26, anion gap of 12, BUN 6, creatinine 1.1, estimated GFR was 61 mL per minute. Her glucose was 94, calcium was 9. Total bilirubin, AST, ALT, alkaline phosphatase were normal. Total protein was 7.9, albumin was 3.4. Her urinalysis showed the urine was yellow, hazy with a pH of 6, specific gravity of 1015. The urine was negative for protein, glucose, ketones, and blood. There was moderate amount of blood, negative for nitrite and leukocyte esterase. There were 6-10 rbc's, occasional wbc's, and no bacteria. Her influenza A and B were negative. Group A streptococcus rapid test was negative. The chest x-ray showed the heart is at the upper limit of normal, but stable. There is no pneumothorax or effusion. No airspace or interstitial disease. ASSESSMENT AND PLAN: In summary, this is a 58-year-old -Ugand[place] female patient who came with complaint of aches and pains, stuffy nose, headache, and dizziness. So far, all the testing including lab work and imaging studies are unrevealing. PLAN: My plan is to arrange for her to have a CT scan of the head and maxillofacial and decide on further management. Given also her vertigo, I would consult Dr. Charles to assist and will start her on meclizine 12.5 mg every 6 hours. BEVERLY RESENDIZ MD DR: ISABELLE/sho JOB#: [id number] / [id number]
[2019-04-15] MEDS: HYDROcodone/APAP 5/325MG 1 TAB TABLET PO PRN ×2 (14:55→21:55)
[2019-04-15 16:24] VITALS: BP 133/77
--- NOTE | 2019-04-15 17:01 | RAD ---
CT HEAD AND MAXILLOFACIAL WO History: Headache. Vertigo. Stenosis. Comparison: None. Technique: Noncontrast CT imaging was performed of the head and sinuses. Coronal and sagittal reconstructions were performed. Exposure: One or more of the following individualized dose reduction techniques were utilized for this examination: 1. Automated exposure control 2. Adjustment of the mA and/or kV according to patient size 3. Use of iterative reconstruction technique. Findings: Head CT: No intracranial hemorrhage. No mass effect. No hydrocephalus. Extra-axial spaces are unremarkable. Maxillofacial CT: No acute maxillofacial fracture. Significant prominent adenoid tonsils. Orbits are unremarkable. Minimal secretions within the left sphenoid sinus. Otherwise, the paranasal sinuses are clear. Mastoid air cells are clear. Right maxillary second premolar periapical lucency. Impression: 1. No acute intracranial abnormality. 2. Minimal left sphenoid sinus disease. 3. Significantly enlarged adenoid tonsils, may relate to reactive changes. Recommend correlation and follow-up for underlying mass as malignancy is not excluded. Electronically signed by: Stanton Briceno DO (04/15/2019 4:58 PM) [facility]
--- NOTE | 2019-04-15 18:43 | NUR ---
Pt is alert and oriented x 4. pt able to state wants and desires. Pt is has been pleasant. Pt shows concerned about what is going on with her. Started pt on IV antibiotics per Dr's orders. Pt complaints of dizziness. Dr. Charles consulted per Dr. Cunningham's order. Pt instructed to call for any assistance or any questions. Pt also complained of peripheral iv discomfort. D/c'd IV and restarted in [place]. Pt educated about antibiotics and medications.
[2019-04-15 19:50] VITALS: BP 135/80
[2019-04-15] MEDS: ERYTHROMYCIN 0.5% OPHTH OINTMENT 1GM TUBE. OD SCH (21:00)
[2019-04-15 22:49] VITALS: BP 128/75
[2019-04-16 05:57] VITALS: BP 134/76
[2019-04-16] MEDS: VITAMIN E 1,000 UNIT CAPSULE. PO SCH (09:00)
[2019-04-16] MEDS: FUROSEMIDE 20 MG TABLET PO SCH (09:19)
[2019-04-16] MEDS: GABAPENTIN 100 MG CAPSULE. PO SCH ×3 (09:19→20:56)
[2019-04-16] MEDS: SPIRONOLACTONE 25 MG TABLET PO SCH (09:19)
[2019-04-16] MEDS: metFORMIN 500 MG TABLET PO SCH (09:19)
[2019-04-16] MEDS: LOSARTAN 50 MG TABLET. PO SCH (09:19)
[2019-04-16] MEDS: ATENOLOL 25 MG TABLET PO SCH (09:20)
[2019-04-16 10:58] VITALS: BP 129/84
[2019-04-16] MEDS: HYDROcodone/APAP 5/325MG 1 TAB TABLET PO PRN ×2 (12:27→18:18)
[2019-04-16] MEDS ORDERED: IOHEXOL 350 MG/ML 100 ML VIAL. IV ONE (15:45)
[2019-04-16 15:52] VITALS: BP 144/77
--- NOTE | 2019-04-16 16:43 | NUR ---
Pt's ct shows showed mass on neck with fluid in ear. Soft tissue ct scan ordered per Dr Cunningham. Ciproflaxicin eye drops ordered for pt. Will continue to monitor and assess.
--- NOTE | 2019-04-16 17:49 | RAD ---
CT study of the soft tissues of the neck with contrast Clinical indications: Enlarged adenoids and tonsils seen on maxillofacial CT. TECHNIQUE: After IV infusion of 75 cc of Omnipaque 350, helical CT scanning of the soft tissues of the neck from the base of the skull down through the lung apices was performed. PQRS compliance Statement One or more of the following individualized dose reduction techniques were utilized for this study: 1. Automated exposure control 2. Adjustment of the mA and/or kV according to patient size 3. Use of iterative reconstruction technique COMPARISON: CT study of the maxillofacial bones performed yesterday. FINDINGS: The adenoids are thickened measuring up to 29 mm in AP dimension. The palatine tonsils are mildly enlarged but symmetric. There is some lingual tonsillar hypertrophy which fills out the valleculae. Therefore, there is abnormal thickening of Waldeyer's ring. No intratonsillar or peritonsillar or prevertebral soft tissue abscess is seen. The epiglottis and aryepiglottic folds are not abnormally thickened otherwise. The preepiglottic fat space and true cords and false cords are unremarkable. No thyroid gland mass is evident. The parotid and submandibular salivary glands are unremarkable. No enlarged cervical lymphadenopathy is evident. No apical lung infiltrate is seen. No lytic process is evident. IMPRESSION: Abnormal soft tissue thickening of the adenoids and palatine tonsils and sublingual tonsils i.e. soft tissue thickening of Waldeyer's ring. This may be seen with oropharyngitis. A lymphomatous process has not been excluded and therefore continued clinical follow-up is recommended. However, no abnormally enlarged cervical lymphadenopathy is seen. Electronically signed by: Edgar Ramon MD (04/16/2019 5:47 PM) [facility]
[2019-04-16] MEDS: CIPROFLOXACIN 0.3% OPHTH SOLUTION 2.5ML BOTTLE. OD SCH ×2 (18:11→20:56)
[2019-04-16 20:08] VITALS: BP 148/82
[2019-04-16] MEDS: LACTOBACILLUS RHAMNOSUS GG 1 CAPSULE. PO SCH (20:56)
[2019-04-16] MEDS: ERYTHROMYCIN 0.5% OPHTH OINTMENT 1GM TUBE. OD SCH (20:56)
[2019-04-16 22:33] VITALS: BP 134/69
--- NOTE | 2019-04-17 04:54 | PN ---
DATE: 04/16/2019 SUBJECTIVE: The patient continued to complain of being dizzy and also her voice has some form of nasal twang. We did a CT scan of her head and facial bones, which basically showed no acute intracranial abnormality, showed minimal left sphenoid sinus disease. She has significantly enlarged adenoid tonsils may relate to reactive changes. Recommend correlation with followup for underlying mass, as malignancy is not excluded. The patient herself said she has had no tonsils and therefore, I recommended to do a CT scan of the soft tissue of the neck to look into this further. She has a history of tonsillectomy, she might have to require referral to an ENT surgeon. PHYSICAL EXAMINATION: GENERAL: When I examined her this afternoon, she looked well and was clearly in no apparent respiratory distress. No pallor, jaundice, cyanosis or thyromegaly. No jugular venous distension. No lower limb edema. VITAL SIGNS: Her heart rate was 97, blood pressure was 129/84, temperature was 98.2, respiratory rate was 20, and oxygen saturation was 94%. HEAD, EYES, EARS, NOSE AND THROAT: Showed normocephalic, atraumatic. NECK: Supple. HEART: Showed normal first and second heart sounds. No gallop, rub or murmur. CHEST: Clear to auscultation. No crepitation or rhonchi. ABDOMEN: Distended, soft, nontender. NEUROLOGIC: She was awake, alert, responding appropriately. All cranial nerves intact. She moves extremities without difficulty. She ambulates without assistance or assistive devices. Her intake and output were incompletely recorded. LABORATORY DATA: Showed a serum sodium of 137, potassium 3.4, chloride 99, bicarbonate 26, anion gap of 12, BUN 6, creatinine 1.1, estimated GFR was 61 mL per minute. Her glucose was 94, calcium was 9. Total bilirubin, AST, ALT, alkaline phosphatase were normal. Total protein is 7.9 and albumin 3.4. Her white cell count was 8700, hemoglobin 12.6, hematocrit 36.8, MCV 87 and platelet count 455,000. ASSESSMENT AND PLAN: This is a 58-year-old -[place]ian female patient, who came with complaint of aches and pains, stuffy nose, headache, dizziness so far. All her lab works are fine. The imaging study revealed a mass in her tonsillar bed. She has a history of tonsillectomy. This is a suspicion that she might have malignancy and therefore, I will arrange for her to have a CT scan of the soft tissue of the neck with IV contrast and once we have the finding, she might require evaluation by an ENT surgeon. BEVERLY RESENDIZ MD DR: ISABELLE/sho JOB#: [id number] / [id number]
[2019-04-17 05:18] VITALS: BP 154/83
[2019-04-17] MEDS: CIPROFLOXACIN 0.3% OPHTH SOLUTION 2.5ML BOTTLE. OD SCH ×2 (06:00→08:32)
[2019-04-17 06:36] LABS: HEMATOCRIT 33.8 % (36.0-47.0); HEMOGLOBIN 11.6 g/dL (12.0-15.5); RED BLOOD COUNT 3.84 x10^6/uL (3.50-5.40); RED CELL DISTRIBUTION WIDTH 13.4 % (11.5-14.5); WHITE BLOOD COUNT 4.3 x10^3/uL (4.0-11.0)
[2019-04-17 06:53] LABS: ALBUMIN 2.8 g/dL (3.4-5.0); ALBUMIN/GLOBULIN RATIO 0.6 (1.0-1.7); CALCIUM 8.7 mg/dL (8.5-10.1); CREATININE 0.8 mg/dL (0.6-1.0); GFR 88.5; POTASSIUM 3.9 mmol/L (3.5-5.1); TOTAL BILIRUBIN 0.3 mg/dL (0.2-1.0); TOTAL PROTEIN 7.2 g/dL (6.4-8.2)
[2019-04-17] MEDS: SPIRONOLACTONE 25 MG TABLET PO SCH (08:32)
[2019-04-17] MEDS: ATENOLOL 25 MG TABLET PO SCH (08:32)
[2019-04-17] MEDS: FUROSEMIDE 20 MG TABLET PO SCH (08:32)
[2019-04-17] MEDS: GABAPENTIN 100 MG CAPSULE. PO SCH (08:32)
[2019-04-17] MEDS: LOSARTAN 50 MG TABLET. PO SCH (08:32)
[2019-04-17] MEDS: LACTOBACILLUS RHAMNOSUS GG 1 CAPSULE. PO SCH (08:32)
[2019-04-17] MEDS: VITAMIN E 1,000 UNIT CAPSULE. PO SCH (09:00)
[2019-04-17 10:55] VITALS: BP 124/78
[2019-04-17] MEDS: HYDROcodone/APAP 5/325MG 1 TAB TABLET PO PRN (11:46)
--- NOTE | 2019-04-17 13:05 | NUR ---
NURSING NOTE DISCHARGE PT DISCHARGED TO HOME VIA AMBULATION ACCOMPANIED BY SPOUSE. PT IS TO FOLLOW UP WITH HER PCP IN 7-10 DAYS OR SOONER IF NEEDED AND GET A REFERRAL FOR ENT BASED ON CT SCAN RESULTS. COPY OF SCAN SENT WITH PT FOR RECORDS. PT HAS CONJUNCTIVITIS AND IS TO TAKE AUGMENTIN X10 DAYS. SCRIPT CALLED INTO [facility]. WRITTEN AND VERBAL DISCHARGE INSTRUCTIONS SENT WITH PT. NO COMPLICATIONS. CAROLE POZO.
--- NOTE | 2019-04-17 22:45 | CONS ---
DATE OF CONSULTATION: 04/15/2019 NEURO CONSULTATION REFERRING PHYSICIAN: Dr. Cunningham. REASON FOR CONSULTATION: Dizziness. HISTORY OF PRESENT ILLNESS: This is a 58-year-old right-handed -Tuval[place] female who was admitted through Emergency Room after she presented with chief complaints of generalized aches, headaches and stuffy nose of few days' duration. According to the patient, she had a flu-like symptoms a week ago. She denies chest pain, shortness of breath, palpitation, dysarthria, dysphagia, weakness or paresthesia. The patient described her dizziness as unsteadiness, more prominent upon arising and walking. Initial nonenhanced head CT scan revealed no acute intracranial abnormalities, but it showed minimal left sphenoid sinus disease and enlarged adenoid tonsils. Maxillofacial CT scan revealed no acute fracture, but prominent adenoid tonsils. PAST MEDICAL HISTORY: Positive for diabetes mellitus type 2, hypertension, hyperlipidemia, congestive heart failure, obesity, sleep apnea with COPD. PAST SURGICAL HISTORY: Significant for right eye cataract extraction, tonsillectomy. CURRENT HOME MEDICATIONS: Augmentin, Lipitor, amlodipine, lisinopril, aspirin, Protonix, metformin, glipizide. FAMILY HISTORY: Father at the age of 69 from diabetes and mother at age of 30. SOCIAL HISTORY: The patient is . She has 2 daughters. She denies smoking, alcohol drinking, or illicit drug use. REVIEW OF SYSTEMS: A 10-point review of system was performed as mentioned above in the history of present illness. PHYSICAL EXAMINATION: GENERAL: Obese -Tuval[place] female, not in acute distress. VITAL SIGNS: Blood pressure 133/77, respiratory rate 20, pulse is 90 and regular, temperature 99.1, oxygen saturation is 96% on room air. HEENT: Normocephalic, atraumatic, otherwise unremarkable. NECK: Supple. Negative for carotid bruit, lymphadenopathy or thyromegaly. LUNGS: Clear to A and P. CARDIOVASCULAR: Regular rate and rhythm, normal S1, S2. There is no S3, S4 or murmurs. ABDOMEN: Soft. Bowel sounds positive. EXTREMITIES: Negative for cyanosis, clubbing, pitting edema. NEUROLOGICAL EXAM: Mental Status: The patient is alert and oriented x 3. Speech is fluent. There is no language dysfunction. Memory, judgment, and abstract thinking are normal. The patient denies hallucination or delusion. CRANIAL NERVES: Visual fam are full. The pupils are reactive to light and accommodation. The extraocular movements are intact. There is no nystagmus. There is no facial motor or sensory deficit. Hearing is intact bilaterally. The palate is elevated symmetrically. Sternocleidomastoid muscles are powerful bilaterally. The patient shrugs her shoulders symmetrically, protrudes her tongue in the midline without fasciculation or atrophy. MOTOR EXAMINATION: No focal muscle bulk was seen. The tone is normal. The strength is 5/5 throughout. Sensory examination revealed normal pinprick, light touch, vibratory and position senses. Deep tendon reflexes were symmetric and active with absent Achilles responses. Gait and coordination are normal. LABORATORY DATA: CBC revealed white blood cells of 8.7 thousand, hemoglobin 12.6, hematocrit 36.8 and platelet count 455,000. Chemistry revealed sodium of 134, potassium is 3.4, chloride 99, CO2 26, BUN 6, creatinine 1.1, glucose 94 and calcium 9. Urinalysis is negative for urinary tract infections. IMPRESSION: 1. Dizziness, described as unsteadiness with normal neurological examination. 2. Bilateral enlarged tonsils, etiology uncertain, rule out inflammatory process. 3. Multiple medical problems include diabetes mellitus, hypertension, hyperlipidemia, obstructive sleep apnea, chronic obstructive pulmonary and gastroesophageal reflux disease. RECOMMENDATIONS: Continue with current management initiated by Dr. Cunningham and home medications. M Raudel FINLEY MD DR: SHANNON/sho JOB#: [id number] / [id number]
--- NOTE | 2019-04-18 06:00 | PN ---
DATE: 04/16/2019 SUBJECTIVE: The patient continues to have discomfort feeling in the throat. She also complains of mild generalized headaches. She denies nausea, vomiting, chest pain, shortness of breath or palpitation. She continues to have dizziness upon walking. OBJECTIVE: GENERAL: Obese female, not in acute distress. VITAL SIGNS: Blood pressure 134/76, respiratory rate 16, pulse is 63, temperature 98.3, oxygen saturation 94% on room air. HEENT: Normocephalic, atraumatic. Enlarged adenoids in the tonsillar region were noted. NECK: Supple. Negative for carotid bruit, lymphadenopathy or thyromegaly. LUNGS: Clear to A and P. CARDIOVASCULAR: Regular rhythm, normal S1, S2. There is no S3, S4 or murmur. ABDOMEN: Soft. Bowel sounds positive. EXTREMITIES: Negative for cyanosis, clubbing or edema. NEUROLOGICAL EXAM: Normal mental status and intact cranial nerves. There is no focal motor or sensory deficit. Deep tendon reflexes were symmetric and hypoactive with absent Achilles responses. Gait and coordination are normal. IMAGING STUDIES: CT of the soft tissue in the neck revealed abnormal soft tissue thickening of the adenoids and palatine tonsils, may be seen with oral pharyngitis. However, other possibilities as malignancy should be ruled out. IMPRESSION: 1. Bilateral enlarged soft issues in the tonsillar regions, etiology uncertain, could be inflammatory versus other pathology. 2. Dizziness, rule out otitis and sinusitis. 3. Multiple medical problems include hypertension, hyperlipidemia, diabetes mellitus, obstructive sleep apnea, chronic obstructive pulmonary disease and gastroesophageal reflux disease. RECOMMENDATIONS: Continue with current management initiated by Dr. Cunningham. Followup with ENT specialist is recommended. M Raudel FINLEY MD DR: SHANNON/sho JOB#: [id number] / [id number]
--- NOTE | 2019-04-18 06:22 | PN ---
DATE: SUBJECTIVE: The patient continues to have discomfort feeling in the throat. She also complains of intermittent dizziness when she moves around. OBJECTIVE: GENERAL: Obese -[place] female, not in acute distress. VITAL SIGNS: Blood pressure 154/83, respiratory rate 18, pulse is 76, temperature 98.6, oxygen saturation 98% on room air. HEENT: Normocephalic, atraumatic, otherwise large soft tissues in both tonsillar regions. NECK: Supple. Negative for carotid bruit, lymphadenopathy or thyromegaly. No lymphadenopathy. LUNGS: Clear to A and P. CARDIOVASCULAR: Regular rate and rhythm, normal S1, S2. ABDOMEN: Soft. Bowel sounds positive. EXTREMITIES: Negative for cyanosis, clubbing or edema. NEUROLOGICAL EXAM: Normal mental status and intact cranial nerves. There is no nystagmus. No focal motor or sensory deficit. Deep tendon reflexes were symmetric and hypoactive with absent Achilles responses. Gait and coordination are normal. IMPRESSION: 1. Intermittent dizziness, described as unsteadiness, mainly when she walks, with normal neurological examination. 2. Soft tissue enlargement in the tonsillar regions, etiology uncertain, probably inflammatory. 3. Multiple medical problems include hypertension, hyperlipidemia, diabetes mellitus, gastroesophageal reflux disease, obstructive sleep apnea, chronic obstructive pulmonary disease. RECOMMENDATIONS: 1. Continue with current management initiated by Dr. Cunningham. 2. Follow up with ENT specialist. M Raudel FINLEY MD DR: SHANNON/sho JOB#: [id number] / [id number]
[2019-04-18] MEDS ORDERED: metFORMIN 500 MG TABLET PO SCH (17:00)
== END 2019-04-17 13:08 | disposition home or self-care (01) | DRG 153 ==
LOC: ER 11:46 → 1 SOUTH 18:06
PROVIDERS: ADMIT Internal Medicine; ATTEND Internal Medicine
DX: J06.9 Acute upper respiratory infection, unspecified (principal); I50.32 Chronic diastolic (congestive) heart failure; J01.90 Acute sinusitis, unspecified; E11.9 Type 2 diabetes mellitus without complications; H10.31 Unspecified acute conjunctivitis, right eye; E78.00 Pure hypercholesterolemia, unspecified; E78.5 Hyperlipidemia, unspecified; E87.6 Hypokalemia; G47.33 Obstructive sleep apnea (adult) (pediatric); I11.0 Hypertensive heart disease with heart failure; J35.3 Hypertrophy of tonsils with hypertrophy of adenoids; J44.9 Chronic obstructive pulmonary disease, unspecified; K21.9 Gastro-esophageal reflux disease without esophagitis; R48.0 Dyslexia and alexia; Z83.3 Family history of diabetes mellitus; E66.01 Morbid (severe) obesity due to excess calories; Z88.2 Allergy status to sulfonamides; Z88.8 Allergy status to other drugs, medicaments and biological substances
CPT/HCPCS: 36415; 70450; 70486; 70491; 71045; 80053; 81001; 82947; 83605; 85025; 85027; 87040; 87070; 87804; 87880; J0696; J3010; Q0162; Q9967; 99285-25; J7030

== ENCOUNTER 2019-06-12 12:13 | Emergency (ER) | payer OTHER ==
[~2019-06-12] VITALS: Ht 157.5 cm; Wt 87.1 kg
--- NOTE | 2019-06-12 13:34 | RAD ---
RS Compliance Statement: One or more of the following individualized dose reduction techniques were utilized for this examination: 1. Automated exposure control 2. Adjustment of the mA and/or kV according to patient size 3. Use of iterative reconstruction technique CT head without contrast 06/12/2019 12:50 PM INDICATION: Headache with history of brain tumor removal 10 years ago. COMPARISON: CT head 04/15/2019 TECHNIQUE: Multiple axial CT images of the head were obtained from skull base through the vertex without intravenous contrast. FINDINGS: Head: Ventricles, sulci and basal cisterns are within normal limits. Dense dural calcination is noted along the falx at the vertex. There is no hydrocephalus. Smith-white matter differentiation is normal. There is no acute intracranial hemorrhage. There is no mass, mass effect or midline shift. Posterior fossa is normal in appearance. Visualized portions of the orbits are normal with exception of right lens replacement. There is improving aeration of the left sphenoid sinus. Mastoid air cells are well aerated. Scalp and calvaria are normal. Stable prominence of the adenoidal soft tissues. IMPRESSION: No acute intracranial hemorrhage. Improving aeration of the left sphenoid sinus. Electronically signed by: Radha Laguna MD (06/12/2019 1:31 PM) [id number]
--- NOTE | 2019-06-12 13:53 | PHYS DOC ---
Past History Past Medical History: CHF, GERD, High Cholesterol, Hypertension, Other Additional Past Medical Histor: tumors in brain Past Surgical History: , Hysterectomy, Other Additional Past Surgical Histo: Gammaknife surgery to brain Smoking: Non-smoker Alcohol Use: Occasionally Drug Use: None Adult General Chief Complaint Chief Complaint: HEADACHE HPI HPI Patient is a 59-year-old female who presented to ER today for evaluation of headache that been going on for 2 days. Patient has history headache the past. Patient also has history of dental status post removal 10 years ago. Patient denies any fever, no neck pain, no neck stiffness. Nothing makes the headache worse or better. She denies any chest pain, no nausea vomiting, no trouble breathing. All other ROS is negative unless otherwise noted in HPI Review of Systems Review of Systems See above Current Medications Current Medications Current Medications Medications (Trade) Dose Ordered Sig/Ramses Start Time Stop Time Status Last Admin Dose Admin Ketorolac Tromethamine (Toradol Im) 60 mg 1X ONCE 06/12/19 14:00 06/12/19 14:01 Allergies Allergies Allergies Coded Allergies Type Severity Reaction Last Updated Verified Sulfa (Sulfonamide Antibiotics) Allergy Intermediate 06/12/19 Yes diphenhydramine Allergy Intermediate 06/12/19 Yes morphine Allergy Intermediate 06/12/19 Yes prochlorperazine Allergy Intermediate 06/12/19 Yes sulfamethoxazole Allergy Intermediate 06/12/19 Yes trimethoprim Allergy Intermediate 06/12/19 Yes Physical Exam Physical Exam See above Constitutional: Well developed, well nourished, no acute distress, non-toxic appearance. [] HENT: Normocephalic, atraumatic, bilateral external ears normal, oropharynx moist, no oral exudates, nose normal. [] Eyes: PERRLA, EOMI, conjunctiva normal, no discharge. [] Neck: Normal range of motion, no tenderness, supple, no stridor. [] Cardiovascular:Heart rate regular rhythm, no murmur [] Lungs & Thorax: Bilateral breath sounds clear to auscultation [] Abdomen: Bowel sounds normal, soft, no tenderness, no masses, no pulsatile masses. [] Skin: Warm, dry, no erythema, no rash. [] Back: No tenderness, no CVA tenderness. [] Extremities: No tenderness, no cyanosis, no clubbing, ROM intact, no edema. [] Neurologic: Alert and oriented X 3, normal motor function, normal sensory function, no focal deficits noted. [] Psychologic: Affect normal, judgement normal, mood normal. [] Current Patient Data Vital Signs Vital Signs Date Time Temp Pulse Resp B/P (MAP) Pulse Ox O2 Delivery O2 Flow Rate FiO2 06/12/19 12:13 98.0 82 16 98 Room Air EKG EKG [] Radiology/Procedures Radiology/Procedures [][place] [address] IMAGING REPORT Signed PATIENT: KANDACE PATTERSON ACCOUNT: [id number] : 1960 LOCATION: ER AGE: 59 SEX: F EXAM STATUS: REG ER ORD. PHYSICIAN: DAREN ARROYO DO REASON: headache, hx of brain tumor removal about 10 years ago PROCEDURE: CT HEAD WO CONTRAST PQRS Compliance Statement: One or more of the following individualized dose reduction techniques were utilized for this examination: 1. Automated exposure control 2. Adjustment of the mA and/or kV according to patient size 3. Use of iterative reconstruction technique CT head without contrast 06/12/2019 12:50 PM INDICATION: Headache with history of brain tumor removal 10 years ago. COMPARISON: CT head 04/15/2019 TECHNIQUE: Multiple axial CT images of the head were obtained from skull base through the vertex without intravenous contrast. FINDINGS: Head: Ventricles, sulci and basal cisterns are within normal limits. Dense dural calcination is noted along the falx at the vertex. There is no hydrocephalus. Smith-white matter differentiation is normal. There is no acute intracranial hemorrhage. There is no mass, mass effect or midline shift. Posterior fossa is normal in appearance. Visualized portions of the orbits are normal with exception of right lens replacement. There is improving aeration of the left sphenoid sinus. Mastoid air cells are well aerated. Scalp and calvaria are normal. Stable prominence of the adenoidal soft tissues. IMPRESSION: No acute intracranial hemorrhage. Improving aeration of the left sphenoid sinus. Electronically signed by: Santo Wyatt MD (06/12/2019 1:31 PM) [id number] DICTATED AND SIGNED BY: SANTO WYATT MD DATE: 06/12/19 [id number] CC: MARIT LAW MD; DAREN ARROYO DO ~ Course & Med Decision Making Course & Med Decision Making Pertinent Labs and Imaging studies reviewed. (See chart for details) [] Dragon Disclaimer Dragon Disclaimer This electronic medical record was generated, in whole or in part, using a voice recognition dictation system. Departure Departure: Impression: Primary Impression: Headache Disposition: HOME, SELF-CARE Condition: STABLE Referrals: AMRIT LAW MD (PCP) please call your doctor for follow up in a few day. Patient Instructions: General Headache Without Cause Scripts Butalbital/Aspirin/Caffeine (FIORINAL 50-325-40 MG CAPSULE) 1 Each Capsule 1 EACH PO Q4HRS PRN for HEADACHE, #15 CAP Prov: DAREN ARROYO DO 06/12/19 DAREN ARROYO DO Jun 12, 2019 13:53
[2019-06-12] MEDS ORDERED: KETOROLAC 60 MG/2 ML VIAL. IM ONE (14:00)
[2019-06-12] MEDS ORDERED: BUTA1CAP31 PO (14:01)
[2019-06-12 14:20] VITALS: BP 159/95
== END 2019-06-12 14:20 | disposition home or self-care (01) ==
LOC: ER 12:13
DX: R51 Headache (principal); I11.0 Hypertensive heart disease with heart failure; I50.9 Heart failure, unspecified; K21.9 Gastro-esophageal reflux disease without esophagitis; E78.00 Pure hypercholesterolemia, unspecified; Z98.818 Other dental procedure status; Z88.2 Allergy status to sulfonamides; Z88.8 Allergy status to other drugs, medicaments and biological substances; Z88.5 Allergy status to narcotic agent; Z88.1 Allergy status to other antibiotic agents
CPT/HCPCS: 70450; 96372; 99284; J1885